=== PATIENT | male | born 1935 | race Caucasian/White ===

== ENCOUNTER 2017-08-11 05:43 | Inpatient (IN) | END 2017-08-14 22:23 | disposition home health service (06) | DRG 470 | DX: M17.11 Unilateral primary osteoarthritis, right knee (principal); J44.9 Chronic obstructive pulmonary disease, unspecified; Z95.1 Presence of aortocoronary bypass graft; I10 Essential (primary) hypertension; Z79.02 Long term (current) use of antithrombotics/antiplatelets; E78.00 Pure hypercholesterolemia, unspecified; E66.9 Obesity, unspecified; Z68.34 Body mass index [BMI] 34.0-34.9, adult ==

== ENCOUNTER 2017-08-14 17:50 | Inpatient (IN) | payer MEDICARE, OTHER ==
[~2017-08-14] VITALS: Ht 165.1 cm; Wt 99.0 kg
[~2017-08-14 17:50] MED LIST: ATOR10TA65 PO; CLON2TAB3 PO; CLOP75TA27 PO; DOXE10CA PO; ESOM40CA PO; PROP60CA PO
[2017-08-15] MEDS ORDERED: SENNA TAB PO PRN (00:30)
[2017-08-15] MEDS ORDERED: HYDROCODONE/APAP (5/325) TAB PO PRN (00:30)
[2017-08-15] MEDS ORDERED: COUMADIN NOTE XX SCH (00:30)
[2017-08-15] MEDS ORDERED: BETHANECHOL 25 MG TAB PO PRN (00:30)
[2017-08-15] MEDS ORDERED: BISACODYL 10 MG SUPP PR PRN (00:30)
[2017-08-15] MEDS ORDERED: NA PHOSPHATE/BIPHOS 133 ML ENEMA PR PRN (00:30)
[2017-08-15] MEDS ORDERED: MAGNESIUM HYDROXIDE 30ML CUP PO PRN ×2 (00:30→15:00)
[2017-08-15] MEDS ORDERED: ZOLPIDEM 5 MG TAB PO PRN (00:30)
[2017-08-15] MEDS: ALBUTEROL/IPRATROPIUM (NEB) 3 ML AMP HHN SCH ×6 (01:00→21:05)
[2017-08-15] MEDS ORDERED: SENNA/DOCUSATE NA (8.6MG/50MG) TAB PO PRN (03:05)
[2017-08-15 03:14] VITALS: BP 148/68; RESP 20
[2017-08-15] MEDS ORDERED: LACTULOSE 30ML CUP PO PRN (04:30)
[2017-08-15] MEDS ORDERED: ACETAMINOPHEN 325 MG TAB PO PRN (04:30)
[2017-08-15] MEDS: PANTOPRAZOLE (EC) 40 MG TAB PO SCH (06:07)
[2017-08-15 06:42] LABS: BASOPHILS % 0.4 % (0.0-2.0); EOSINOPHILS # 0.2 10^3/ul (0.0-0.5); EOSINOPHILS % 2.3 % (0.0-7.0); HEMOGLOBIN 9.9 g/dl (14.0-18.0); LYMPHOCYTES # 1.5 10^3/ul (0.8-2.9); LYMPHOCYTES % 17.7 % (15.0-51.0); MEAN CORPUSCULAR HEMOGLOBIN 30.5 pg (29.0-33.0); MEAN CORPUSCULAR HGB CONC 31.9 g/dl (32.0-37.0); MEAN CORPUSCULAR VOLUME 95.4 fl (82.0-101.0); MEAN PLATELET VOLUME 9.5 fl (7.4-10.4); MONOCYTE # 0.8 10^3/ul (0.3-0.9); MONOCYTES % 9.9 % (0.0-11.0); NEUTROPHIL # 5.7 10^3/ul (1.6-7.5); NEUTROPHILS % 69.2 % (39.0-77.0); PLATELET COUNT 230 10^3/UL (140-415); RED BLOOD COUNT 3.25 10^6/ul (4.70-6.10); RED CELL DISTRIBUTION WIDTH 13.1 % (11.5-14.5); WHITE BLOOD COUNT 8.2 10^3/ul (4.8-10.8)
[2017-08-15 06:53] VITALS: Ht 165.1 cm; Wt 99.0 kg
[2017-08-15 07:14] LABS: ALBUMIN/GLOBULIN RATIO 0.9; BILIRUBIN,INDIRECT 0.5 mg/dl (0-1.1); BILIRUBIN,TOTAL 0.5 mg/dl (0.2-1.3); CALCIUM 8.4 mg/dl (8.4-10.2); CREATININE 0.8 mg/dl (0.61-1.24); POTASSIUM 3.4 mmol/L (3.5-5.1); TOTAL PROTEIN 6.3 g/dl (6.1-8.1)
[2017-08-15 07:30] VITALS: BP 123/64; RESP 20
[2017-08-15] MEDS: oxyCODONE (CR) 10 MG TAB [oxyCONTIN] PO SCH ×2 (08:08→20:16)
[2017-08-15] MEDS: ASPIRIN (EC) 81 MG TAB PO SCH ×2 (08:08→20:16)
[2017-08-15] MEDS: CLOPIDOGREL 75 MG TAB PO SCH (08:08)
[2017-08-15] MEDS: CELECOXIB 200 MG CAP PO SCH ×2 (08:08→20:16)
[2017-08-15] MEDS: FERROUS FUMARATE (SR) TAB PO SCH ×2 (08:08→20:16)
[2017-08-15] MEDS: DOCUSATE SODIUM 100 MG CAP PO SCH ×2 (08:11→20:16)
--- NOTE | 2017-08-15 11:54 | CONS ---
DATE OF ADMISSION: 08/14/2017 DATE OF CONSULTATION: 08/15/2017 REHABILITATION POST ADMISSION PHYSICIAN EVALUATION REHABILITATION IMPAIRMENT CATEGORY: Other orthopedic disorder with severe osteoarthritis status post right total knee replacement. ACTIVE COMORBIDITIES: 1. Acute pain syndrome. 2. History of chronic low back pain with history of back surgery. 3. Obesity. 4. Coronary artery disease with history of coronary artery bypass graft. 5. Chronic obstructive pulmonary disease. 6. Hyperlipidemia. 7. History of left total knee replacement. 8. Impairments in self-care and mobility. HISTORY OF PRESENT ILLNESS: The patient is a pleasant 82-year-old gentleman with a history of multiple medical comorbidities who had been noting severe increasing right knee pain despite conservative measures. The patient underwent a right total knee replacement with postoperative course notable for anemia in addition to significant pain and constipation. The patient had been cleared to transfer to the rehabilitation unit for comprehensive interdisciplinary rehab care. FUNCTIONAL HISTORY: Prior to recent events, she was independent in self-care tasks and mobility. Currently, the patient requires moderate assist for self- care and mobility tasks. I have reviewed the preadmission screen and the patient's current functional status is consistent with the preadmission screen. SOCIAL HISTORY: The patient reports living at home with family and he hopes to return there upon discharge. PAST MEDICAL HISTORY: 1. Obesity. 2. Coronary artery disease with history of coronary artery bypass graft. 3. Chronic obstructive pulmonary disease. 4. Hyperlipidemia. 5. History of left total knee replacement. 6. History of lumbar surgery. CURRENT MEDICATIONS: 1. Aspirin 81 mg p.o. b.i.d. 2. Lipitor 10 mg p.o. at bedtime. 3. Urecholine 25 mg p.r.n. 4. Celebrex 200 mg p.o. b.i.d. 5. Plavix 75 mg p.o. every day. 6. Senokot p.r.n. 7. Ferrous fumarate b.i.d. 8. Neurontin 100 mg b.i.d. 9. [place] p.r.n. 10. OxyContin 10 mg b.i.d. 11. Protonix 40 mg p.o. every day. ALLERGIES: THE PATIENT WITH NO KNOWN DRUG ALLERGIES. PHYSICAL EXAMINATION: VITAL SIGNS: The patient is currently afebrile with stable vital signs. HEENT: Extraocular motions are intact. Oropharynx clear. NECK: Supple. LUNGS: Clear anteriorly. CARDIAC: S1, S2. ABDOMEN: Soft, nontender, positive bowel sounds. NEUROLOGIC: The patient is awake and alert and oriented x3, can follow simple 1 -step commands. He demonstrates antigravity strength in bilateral upper extremity and the left lower extremity. Dorsiflexion and plantar flexion intact on the right. PLAN: The patient has been admitted for comprehensive interdisciplinary acute rehab and is anticipated to tolerate 3 hours of daily therapy in divided doses for at least 5/7 days a week. The treatment plan will include: 1. Physical therapy to focus on bed mobility, transfers and household ambulation with the goal to have the patient reach standby assist level. 2. Occupational therapy to focus on hygiene, grooming, dressing, bathing, and toileting activities with goal of having patient reach standby assist level. 3. Rehabilitation nursing for carryover of therapeutic interventions, the goal of continent of bowel and bladder and the goal of pain adequately managed on oral medications. ESTIMATED LENGTH OF STAY: 10 days. DISPOSITION GOAL: Home. Rehabilitaiton Barrier: pain Intervention For Barrier: Interdisciplinary rehab I acknowledge that I performed a full physical examination on this patient within 24 hours of admission to the rehabilitation unit and I believe the patient is a good candidate for comprehensive interdisciplinary rehab care and is anticipated to make reasonable goals in a reasonable period of time as outlined above. Dictated By: ALEJANDRA QUIÑONEZ/BRANDON Conf#: [id number] DID#: [id number] MTDD
--- NOTE | 2017-08-15 14:12 | CONS ---
Date/Time of Note Date/Time of Note DATE: 08/15/17 TIME: 14:12 Assessment/Plan Assessment/Plan Chief Complaint/Hosp Course 82-year-old male, status post right total knee replacement secondary to osteoarthritis, transferred to [facility] for further rehabilitation. 1. Osteoarthritis, status post right total knee replacement on 08/11/2017. -Postoperative follow-up with orthopedics. -Continue pain medications, PT eval and treatment. 2. Hypertension. Blood pressure stable. -Continue to monitor for now. 3. Hyperlipidemia. - Continue statin. 4. Obesity. -Lifestyle changes/weight reduction advised. 5. History of chronic obstructive pulmonary disease. No acute distress. -As needed bronchodilators. 6. Coronary artery disease status post coronary artery bypass grafting and stent placed in the past. -Continue aspirin and Plavix 7. Anemia, chronic. Stable H&H. 8. Hypokalemia with hypomagnesemia. Replete and monitor. Prophylaxis: Lovenox. Presently 60 minutes was spent on this consultation. Patient was seen in collaboration with . Problems: Consultation Date/Type/Reason Admit Date/Time Aug 14, 2017 at 22:53 Reason for Consultation Internal medicine Hx of Present Illness This is a 82-year-old obese male with a past medical history of coronary artery disease with PCI and stent placed, CABG, COPD, osteoarthritis, hypercholesterolemia, hypertension, who is now transferred to [facility] acute rehabilitation unit after patient had right total knee replacement surgery with Dr. Neema Cifuentes MD on 08/11/2017. Patient had a normal postoperative course. However, he continued to have impairment in self-care requiring further rehabilitation. Patient denies any chest pain, palpitation, shortness of breath, nausea, vomiting, abdominal discomfort, numbness, tingling, swelling or other constitutional symptoms. Current labs and vital signs within acceptable range. A 12 point review of system was assessed and is negative other than what is mentioned in HPI. Past Medical History See HPI Past Surgical History See HPI Social History Denied history of alcohol, smoking or illicit drug use. Smoking Status: Never smoker Exam/Review of Systems Vital Signs Vitals Vital Signs Date Time Temp Pulse Resp B/P Pulse Ox O2 Delivery O2 Flow Rate FiO2 08/15/17 08:10 90 18 94 21 08/15/17 08:10 2.0 08/15/17 08:00 Nasal Cannula 08/15/17 07:30 98.5 123/64 Exam General: Well developed,adequately built, not in any acute distress . HEENT: Normocephalic, Atraumatic, No laceration or hematoma; Eyes: PEERL, Conjunctiva clear, Anicteric sclera Neck: Supple without any lymphadenopathy, nontender, no JVD, no carotid bruits, trachea midline, no thyromegaly Cardiac: S1, S2 auscultated, regular rhythm and rate, no mumurs or gallop Pulmonary: Normal respiratory effort. Chest clear to auscultation bilaterally, no adventitious breath sounds GI: Abdomen normal to inspection. Soft, non tender, non- distended, no masses, no rebound tenderness or guarding. Bowel sounds active on all four quadrants Genitourinary: Deferred Extremities: No cyanosis, clubbing, or edema. Pulses [2+] bilaterally. Full ROM on all four extremities. No focal weakness appreciated. Neurologic: Alert to person, place, time, and situation. Affect appropriate, intact sensation. Skin: Clean,dry, and intact. No ecchymosis, no rashes, or lesions Results Result Diagram: 08/15/1760008/15/17 06 Results 24 hrs Laboratory Tests Test 08/15/17 06:01 White Blood Count 8.2 Red Blood Count 3.25 L Hemoglobin 9.9 L Hematocrit 31.0 L Mean Corpuscular Volume 95.4 Mean Corpuscular Hemoglobin 30.5 Mean Corpuscular Hemoglobin Concent 31.9 L Red Cell Distribution Width 13.1 Platelet Count 230 Mean Platelet Volume 9.5 Neutrophils % 69.2 Lymphocytes % 17.7 Monocytes % 9.9 Eosinophils % 2.3 Basophils % 0.4 Nucleated Red Blood Cells % 0.0 Neutrophils # 5.7 Lymphocytes # 1.5 Monocytes # 0.8 Eosinophils # 0.2 Basophils # 0.0 Nucleated Red Blood Cells # 0.0 Sodium Level 141 Potassium Level 3.4 L Chloride Level 104 Carbon Dioxide Level 28 Anion Gap 12 Blood Urea Nitrogen 16 Creatinine 0.80 Glucose Level 83 Calcium Level 8.4 Magnesium Level 1.6 L Total Bilirubin 0.5 Direct Bilirubin 0.00 Indirect Bilirubin 0.5 Aspartate Amino Transf (AST/SGOT) 52 H Alanine Aminotransferase (ALT/SGPT) 30 Alkaline Phosphatase 160 H Total Protein 6.3 Albumin 3.0 L Globulin 3.30 H Albumin/Globulin Ratio 0.90 Medications Medications Current Medications Pantoprazole (Protonix Tab) 40 mg DAILY@06 PO Last administered on 08/15/17 06:07; Admin Dose 40 MG; Start 08/15/17 at 06:00 Simethicone (Mylicon) 80 mg TID PRN PO DISTENSION/GAS/BLOATING; Start at 00:30 Sodium Biphosphate/ Sodium Phosphate (Fleet Enema) 133 ml DAILY PRN [place] CONSTIPATION; Start 08/15/17 at 00:30 Zolpidem Tartrate (Ambien) 5 mg HS PRN PO INSOMNIA; Start 08/15/17 at 00:30 Magnesium Hydroxide (Milk Of Mag) 30 ml HS PRN PO CONSTIPATION; Start at 00:30 Oxycodone HCl (Oxycontin) 10 mg BID PO Last administered on 08/15/17 08:08; Admin Dose 10 MG; Start 08/15/17 at 09:00 Miscellaneous Information (Note) FOR COUMADIN / LOVE... NOTE XX ; Start at 00:30 Docusate Sodium/ Ferrous Fumarate (Harry-Sequels) 1 tab BID PO Last administered on 08/15/17 08:08; Admin Dose 1 TAB; Start 08/15/17 at 09:00 Acetaminophen/ Hydrocodone Bitart ([place] (5/325)) 1 tab Q6H PRN PO PAIN; Start 08/15/17 at 00:30 Aspirin (Halfprin) 81 mg BID PO Last administered on 08/15/17 08:08; Admin Dose 81 MG; Start 08/15/17 at 09:00 Atorvastatin Calcium (Lipitor) 10 mg DAILY@21 PO ; Start 08/15/17 at 21:00 Bisacodyl (Dulcolax Supp) 10 mg DAILY PRN [place] CONSTIPATION; Start 08/15/17 at 00:30 Celecoxib (Celebrex) 200 mg BID PO Last administered on 08/15/17 08:08; Admin Dose 200 MG; Start 08/15/17 at 09:00 Clopidogrel Bisulfate (plaVIX) 75 mg DAILY PO Last administered on 08/15/17 08:08; Admin Dose 75 MG; Start 08/15/17 at 09:00 Senna/Docusate Sodium (Senokot-S) 2 tab BID PRN PO CONSTIPATION; Start at 03:05 Docusate Sodium (Colace) 100 mg BID PO Last administered on 08/15/17t 08:11; Admin Dose 100 MG; Start 08/15/17 at 09:00 Acetaminophen (Tylenol Tab) 650 mg Q4H PRN PO PAIN; Start 08/15/17 at 04:30 Lactulose (Enulose) 20 gm DAILY PRN PO CONSTIPATION; Start 08/15/17 at 04:30 AMY FU NP Aug 15, 2017 14:12
[2017-08-15] MEDS ORDERED: POTASSIUM CHLORIDE (SR) 20 MEQ TAB PO STA (15:27)
[2017-08-15] MEDS ORDERED: BETAMETHASONE/CLOTRIMAZOLE 15 GM CR TOP ONE (15:30)
[2017-08-15] MEDS ORDERED: MAGNESIUM SULFATE 2 GM/50 ML 50 ML IVPB ONE (17:00)
[2017-08-15] MEDS: ENOXAPARIN 40 MG/0.4 ML SYG SC SCH (18:08)
[2017-08-15 20:00] VITALS: BP 139/69; RESP 18
[2017-08-15] MEDS: ATORVASTATIN 10 MG TAB PO SCH (20:16)
[2017-08-15 23:37] LABS: ADD UMIC YES; UR ASCORBIC ACID NEGATIVE (NEGATIVE); UR BILIRUBIN (Dip) NEGATIVE (NEGATIVE); UR BLOOD (Dip) 1+ mg/dL (NEGATIVE); UR CLARITY CLEAR (CLEAR); UR COLOR AMBER (YELLOW); UR GLUCOSE (Dip) NEGATIVE (NEGATIVE); UR KETONES (Dip) 1+ mg/dL (NEGATIVE); UR LEUKOCYTE ESTERASE (Dip) NEGATIVE Leu/ul (NEGATIVE); UR NITRITE (Dip) NEGATIVE (NEGATIVE); UR RBC 3 /HPF (0-5); UR SPECIFIC GRAVITY (Dip) 1.019 (1.003-1.030); UR TOTAL PROTEIN (Dip) NEGATIVE (NEGATIVE); UR UROBILINOGEN (Dip) 2+ mg/dL (NEGATIVE)
[2017-08-16] MEDS: ALBUTEROL/IPRATROPIUM (NEB) 3 ML AMP HHN SCH ×6 (01:00→21:50)
[2017-08-16 02:00] VITALS: BP 128/70; RESP 18
[2017-08-16] MEDS: PANTOPRAZOLE (EC) 40 MG TAB PO SCH (06:23)
[2017-08-16 07:30] VITALS: BP 136/65; RESP 20
[2017-08-16] MEDS: oxyCODONE (CR) 10 MG TAB [oxyCONTIN] PO SCH ×3 (08:05→20:20)
[2017-08-16] MEDS: DOCUSATE SODIUM 100 MG CAP PO SCH ×2 (09:01→20:19)
[2017-08-16] MEDS: FERROUS FUMARATE (SR) TAB PO SCH ×2 (09:01→20:19)
[2017-08-16] MEDS: CELECOXIB 200 MG CAP PO SCH ×2 (09:01→20:19)
[2017-08-16] MEDS: ASPIRIN (EC) 81 MG TAB PO SCH ×2 (09:01→20:19)
[2017-08-16] MEDS: CLOPIDOGREL 75 MG TAB PO SCH (09:01)
[2017-08-16] MEDS: ENOXAPARIN 40 MG/0.4 ML SYG SC SCH (09:02)
--- NOTE | 2017-08-16 09:23 | CONS ---
Date/Time of Note Date/Time of Note DATE: 08/16/17 TIME: 09:21 Consult Date/Type/Reason Admit Date/Time Aug 14, 2017 at 22:53 Initial Consult Date Subjective Reports significant pain Objective pulm-cta max Vital Signs Date Time Temp Pulse Resp B/P Pulse Ox O2 Delivery O2 Flow Rate FiO2 08/16/17 05:14 2.0 08/16/17 02:00 98.5 85 18 128/70 95 08/15/17 21:06 Nasal Cannula 08/15/17 08:10 Intake and Output 08/15/17 08/15/17 08/16/17 15:00 23:00 07:00 Intake Total 300 ml 370 ml 400 ml Balance 300 ml 370 ml 400 ml Results/Medications Result Diagram: 08/15/1760008/15/17 06 Medications Current Medications Pantoprazole (Protonix Tab) 40 mg DAILY@06 PO Last administered on 08/16/17 06:23; Admin Dose 40 MG; Start 08/15/17 at 06:00 Simethicone (Mylicon) 80 mg TID PRN PO DISTENSION/GAS/BLOATING; Start at 00:30 Sodium Biphosphate/ Sodium Phosphate (Fleet Enema) 133 ml DAILY PRN [place] CONSTIPATION; Start 08/15/17 at 00:30 Zolpidem Tartrate (Ambien) 5 mg HS PRN PO INSOMNIA; Start 08/15/17 at 00:30 Oxycodone HCl (Oxycontin) 10 mg BID PO Last administered on 08/16/17 09:03; Admin Dose 10 MG; Start 08/15/17 at 09:00 Miscellaneous Information (Note) FOR COUMADIN / LOVE... NOTE XX ; Start at 00:30 Docusate Sodium/ Ferrous Fumarate (Harry-Sequels) 1 tab BID PO Last administered on 08/16/17 09:01; Admin Dose 1 TAB; Start 08/15/17 at 09:00 Acetaminophen/ Hydrocodone Bitart ([place] (5/325)) 1 tab Q6H PRN PO PAIN Last administered on 08/16/17 06:25; Admin Dose 1 TAB; Start 08/15/17 at 00:30 Aspirin (Halfprin) 81 mg BID PO Last administered on 08/16/17 09:01; Admin Dose 81 MG; Start 08/15/17 at 09:00 Atorvastatin Calcium (Lipitor) 10 mg DAILY@21 PO Last administered on 20:16; Admin Dose 10 MG; Start 08/15/17 at 21:00 Bisacodyl (Dulcolax Supp) 10 mg DAILY PRN [place] CONSTIPATION; Start 08/15/17 at 00:30 Celecoxib (Celebrex) 200 mg BID PO Last administered on 08/16/17 09:01; Admin Dose 200 MG; Start 08/15/17 at 09:00 Clopidogrel Bisulfate (plaVIX) 75 mg DAILY PO Last administered on 08/16/17 09:01; Admin Dose 75 MG; Start 08/15/17 at 09:00 Senna/Docusate Sodium (Senokot-S) 2 tab BID PRN PO CONSTIPATION; Start at 03:05 Docusate Sodium (Colace) 100 mg BID PO Last administered on 08/16/17 09:01; Admin Dose 100 MG; Start 08/15/17 at 09:00 Acetaminophen (Tylenol Tab) 650 mg Q4H PRN PO PAIN; Start 08/15/17 at 04:30 Lactulose (Enulose) 20 gm DAILY PRN PO CONSTIPATION; Start 08/15/17 at 04:30 Magnesium Hydroxide (Milk Of Mag) 30 ml BID PRN PO CONSTIPATION; Start at 15:00 Bisacodyl (Dulcolax) 5 mg DAILY PRN PO CONSTIPATION; Start 08/15/17 at 15:00 Enoxaparin Sodium (Lovenox) 40 mg DAILY SC Last administered on 08/16/17 09: 02; Admin Dose 40 MG; Start 08/15/17 at 15:00 Acetaminophen/ Hydrocodone Bitart ([place] (7.5-325)) 1 tab Q6H PRN PO pain; Start 08/16/17 at 09:30; Status UNV Hydromorphone HCl (Dilaudid) 0.5 mg Q6H PRN IV PAIN; Start 08/16/17 at 09:30; Status UNV Assessment/Plan Additional Assessment/Plan Rehab-Other orthopedic disorder with severe osteoarthritis status post right total knee replacement. Increase activities as tolerated Acute pain syndrome-adjust pain meds History of chronic low back pain with history of back surgery. Obesity. Coronary artery disease with history of coronary artery bypass graft. Chronic obstructive pulmonary disease. Hyperlipidemia. History of left total knee replacement. ALEJANDRA BATEMAN MD Aug 16, 2017 09:23
--- NOTE | 2017-08-16 11:30 | CONS ---
Date/Time of Note Date/Time of Note DATE: 08/16/17 TIME: 11:28 Assessment/Plan Assessment/Plan Chief Complaint/Hosp Course 82-year-old male, status post right total knee replacement secondary to osteoarthritis, transferred to [facility] for further rehabilitation. 1. Osteoarthritis, status post right total knee replacement on 08/11/2017. -Postoperative follow-up with orthopedics. -Continue pain medications, PT eval and treatment. 2. Hypertension. Blood pressure stable. -Continue to monitor for now. 3. Hyperlipidemia. - Continue statin. 4. Obesity. -Lifestyle changes/weight reduction advised. 5. History of chronic obstructive pulmonary disease. No acute distress. -As needed bronchodilators. 6. Coronary artery disease status post coronary artery bypass grafting and stent placed in the past. -Continue aspirin and Plavix 7. Anemia, chronic. Stable H&H. Prophylaxis: Lovenox. Plan: Patient with overall poor participation in physical therapy. Defer ARU team for further recommendations. Patient was seen in collaboration with . Problems: Consultation Date/Type/Reason Admit Date/Time Aug 14, 2017 at 22:53 Initial Consult Date 24 HR Interval Summary Free Text/Dictation No acute distress. With poor participation in physical therapy. Exam/Review of Systems Vital Signs Vitals Vital Signs Date Time Temp Pulse Resp B/P Pulse Ox O2 Delivery O2 Flow Rate FiO2 08/16/17 07:30 97.8 80 20 136/65 98 08/16/17 05:14 2.0 08/15/17 21:06 Nasal Cannula 08/15/17 08:10 Intake and Output 08/15/17 08/15/17 08/16/17 14:59 22:59 06:59 Intake Total 300 ml 370 ml 400 ml Balance 300 ml 370 ml 400 ml Exam General: Well developed,adequately built, not in any acute distress . HEENT: Normocephalic, Atraumatic, No laceration or hematoma; Eyes: PEERL, Conjunctiva clear, Anicteric sclera Neck: Supple without any lymphadenopathy, nontender, no JVD, no carotid bruits, trachea midline, no thyromegaly Cardiac: S1, S2 auscultated, regular rhythm and rate, no mumurs or gallop Pulmonary: Normal respiratory effort. Chest clear to auscultation bilaterally, no adventitious breath sounds GI: Abdomen normal to inspection. Soft, non tender, non- distended, no masses, no rebound tenderness or guarding. Bowel sounds active on all four quadrants Genitourinary: Deferred Extremities: No cyanosis, clubbing, or edema. Pulses [2+] bilaterally. Full ROM on all four extremities. No focal weakness appreciated. Neurologic: Alert to person, place, time, and situation. Affect appropriate, intact sensation. Skin: Clean,dry, and intact. No ecchymosis, no rashes, or lesions Results Result Diagram: 08/15/1760008/15/17 06 Medications Medications Current Medications Pantoprazole (Protonix Tab) 40 mg DAILY@06 PO Last administered on 08/16/17 06:23; Admin Dose 40 MG; Start 08/15/17 at 06:00 Simethicone (Mylicon) 80 mg TID PRN PO DISTENSION/GAS/BLOATING; Start at 00:30 Sodium Biphosphate/ Sodium Phosphate (Fleet Enema) [address] CONSTIPATION; Start 08/15/17 at 00:30 Zolpidem Tartrate (Ambien) 5 mg HS PRN PO INSOMNIA; Start 08/15/17 at 00:30 Oxycodone HCl (Oxycontin) 10 mg BID PO Last administered on 08/16/17 09:03; Admin Dose 10 MG; Start 08/15/17 at 09:00 Miscellaneous Information (Note) FOR COUMADIN / LOVE... NOTE XX ; Start at 00:30 Docusate Sodium/ Ferrous Fumarate (Harry-Sequels) 1 tab BID PO Last administered on 08/16/17 09:01; Admin Dose 1 TAB; Start 08/15/17 at 09:00 Aspirin (Halfprin) 81 mg BID PO Last administered on 08/16/17 09:01; Admin Dose 81 MG; Start 08/15/17 at 09:00 Atorvastatin Calcium (Lipitor) 10 mg DAILY@21 PO Last administered on 20:16; Admin Dose 10 MG; Start 08/15/17 at 21:00 Bisacodyl (Dulcolax Supp) [address] CONSTIPATION; Start 08/15/17 at 00:30 Celecoxib (Celebrex) 200 mg BID PO Last administered on 08/16/17 09:01; Admin Dose 200 MG; Start 08/15/17 at 09:00 Clopidogrel Bisulfate (plaVIX) 75 mg DAILY PO Last administered on 08/16/17 09:01; Admin Dose 75 MG; Start 08/15/17 at 09:00 Senna/Docusate Sodium (Senokot-S) 2 tab BID PRN PO CONSTIPATION; Start at 03:05 Docusate Sodium (Colace) 100 mg BID PO Last administered on 08/16/17 09:01; Admin Dose 100 MG; Start 08/15/17 at 09:00 Acetaminophen (Tylenol Tab) 650 mg Q4H PRN PO PAIN; Start 08/15/17 at 04:30 Lactulose (Enulose) 20 gm DAILY PRN PO CONSTIPATION; Start 08/15/17 at 04:30 Magnesium Hydroxide (Milk Of Mag) 30 ml BID PRN PO CONSTIPATION; Start at 15:00 Bisacodyl (Dulcolax) 5 mg DAILY PRN PO CONSTIPATION; Start 08/15/17 at 15:00 Enoxaparin Sodium (Lovenox) 40 mg DAILY SC Last administered on 08/16/17 09: 02; Admin Dose 40 MG; Start 08/15/17 at 15:00 Acetaminophen/ Hydrocodone Bitart ([place] (7.5-325)) 1 tab Q6H PRN PO pain; Start 08/16/17 at 09:30 Hydromorphone HCl (Dilaudid) 0.5 mg Q6H PRN IV PAIN; Start 08/16/17 at 09:30 AMY FU NP Aug 16, 2017 11:30
[2017-08-16 14:14] VITALS: BP 165/75; PULSE 92; RESP 16
[2017-08-16 16:30] VITALS: BP 165/75; RESP 20
[2017-08-16 17:18] VITALS: BP 159/78; PULSE 88; RESP 18
[2017-08-16] MEDS: HYDROmorphONE 0.5 MG/0.5 ML SYG IV PRN (18:52)
[2017-08-16 19:51] VITALS: BP 168/72; RESP 18
[2017-08-16] MEDS: ATORVASTATIN 10 MG TAB PO SCH (20:19)
[2017-08-16] MEDS: HYDROCODONE/APAP (7.5/325) TAB PO PRN (22:52)
[2017-08-17] MEDS: ALBUTEROL/IPRATROPIUM (NEB) 3 ML AMP HHN SCH ×6 (01:00→21:00)
[2017-08-17 02:00] VITALS: BP 146/69; PULSE 83; RESP 18
[2017-08-17] MEDS: PANTOPRAZOLE (EC) 40 MG TAB PO SCH (06:14)
[2017-08-17 07:00] VITALS: BP 152/67; RESP 18
[2017-08-17] MEDS: oxyCODONE (CR) 10 MG TAB [oxyCONTIN] PO SCH ×2 (08:44→20:37)
[2017-08-17] MEDS: CLOPIDOGREL 75 MG TAB PO SCH (08:44)
[2017-08-17] MEDS: FERROUS FUMARATE (SR) TAB PO SCH ×2 (08:44→20:36)
[2017-08-17] MEDS: DOCUSATE SODIUM 100 MG CAP PO SCH ×2 (08:44→20:36)
[2017-08-17] MEDS: ASPIRIN (EC) 81 MG TAB PO SCH ×2 (08:44→20:36)
[2017-08-17] MEDS: BISACODYL (EC) 5 MG TAB PO PRN (08:44)
[2017-08-17] MEDS: CELECOXIB 200 MG CAP PO SCH ×2 (08:45→20:36)
[2017-08-17] MEDS: ENOXAPARIN 40 MG/0.4 ML SYG SC SCH (08:46)
--- NOTE | 2017-08-17 10:56 | CONS ---
Date/Time of Note Date/Time of Note DATE: 08/17/17 TIME: 10:55 Assessment/Plan Assessment/Plan Chief Complaint/Hosp Course 82-year-old male, status post right total knee replacement secondary to osteoarthritis, transferred to [facility] for further rehabilitation. 1. Osteoarthritis, status post right total knee replacement on 08/11/2017. -Postoperative follow-up with orthopedics. -Continue pain medications, PT eval and treatment. 2. Hypertension. Blood pressure stable. -Continue to monitor for now. 3. Hyperlipidemia. - Continue statin. 4. Obesity. -Lifestyle changes/weight reduction advised. 5. History of chronic obstructive pulmonary disease. No acute distress. -As needed bronchodilators. 6. Coronary artery disease status post coronary artery bypass grafting and stent placed in the past. -Continue aspirin and Plavix 7. Anemia, chronic. Stable H&H. Prophylaxis: Lovenox. Plan: Patient with overall poor participation in physical therapy. Defer ARU team for further recommendations. Patient was seen in collaboration with . Problems: Consultation Date/Type/Reason Admit Date/Time Aug 14, 2017 at 22:53 24 HR Interval Summary Free Text/Dictation No acute distress. Exam/Review of Systems Vital Signs Vitals Vital Signs Date Time Temp Pulse Resp B/P Pulse Ox O2 Delivery O2 Flow Rate FiO2 08/17/17 07:00 98.6 73 18 152/67 93 08/17/17 02:00 Room Air 08/16/17 20:15 2.0 08/15/17 08:10 Intake and Output 08/16/17 08/16/17 08/17/17 15:00 23:00 07:00 Intake Total 650 ml Output Total 830 ml 200 ml Balance -180 ml -200 ml Exam General: Well developed,adequately built, not in any acute distress . HEENT: Normocephalic, Atraumatic, No laceration or hematoma; Eyes: PEERL, Conjunctiva clear, Anicteric sclera Neck: Supple without any lymphadenopathy, nontender, no JVD, no carotid bruits, trachea midline, no thyromegaly Cardiac: S1, S2 auscultated, regular rhythm and rate, no mumurs or gallop Pulmonary: Normal respiratory effort. Chest clear to auscultation bilaterally, no adventitious breath sounds GI: Abdomen normal to inspection. Soft, non tender, non- distended, no masses, no rebound tenderness or guarding. Bowel sounds active on all four quadrants Genitourinary: Deferred Extremities: No cyanosis, clubbing, or edema. Pulses [2+] bilaterally. Full ROM on all four extremities. No focal weakness appreciated. Neurologic: Alert to person, place, time, and situation. Affect appropriate, intact sensation. Skin: Clean,dry, and intact. No ecchymosis, no rashes, or lesions Results Result Diagram: 08/15/1760008/15/17600 Medications Medications Current Medications Pantoprazole (Protonix Tab) 40 mg DAILY@06 PO Last administered on 08/17/17 06:14; Admin Dose 40 MG; Start 08/15/17 at 06:00 Simethicone (Mylicon) 80 mg TID PRN PO DISTENSION/GAS/BLOATING; Start at 00:30 Sodium Biphosphate/ Sodium Phosphate (Fleet Enema) 133 ml DAILY PRN [place] CONSTIPATION; Start 08/15/17 at 00:30 Zolpidem Tartrate (Ambien) 5 mg HS PRN PO INSOMNIA; Start 08/15/17 at 00:30 Oxycodone HCl (Oxycontin) 10 mg BID PO Last administered on 08/17/17 08:44; Admin Dose 10 MG; Start 08/15/17 at 09:00 Miscellaneous Information (Note) FOR COUMADIN / LOVE... NOTE XX ; Start at 00:30 Docusate Sodium/ Ferrous Fumarate (Harry-Sequels) 1 tab BID PO Last administered on 08/17/17 08:44; Admin Dose 1 TAB; Start 08/15/17 at 09:00 Aspirin (Halfprin) 81 mg BID PO Last administered on 08/17/17 08:44; Admin Dose 81 MG; Start 08/15/17 at 09:00 Atorvastatin Calcium (Lipitor) 10 mg DAILY@21 PO Last administered on 20:19; Admin Dose 10 MG; Start 08/15/17 at 21:00 Bisacodyl (Dulcolax Supp) 10 mg DAILY PRN [place] CONSTIPATION; Start 08/15/17 at 00:30 Celecoxib (Celebrex) 200 mg BID PO Last administered on 08/17/17 08:45; Admin Dose 200 MG; Start 08/15/17 at 09:00 Clopidogrel Bisulfate (plaVIX) 75 mg DAILY PO Last administered on 08/17/17 08:44; Admin Dose 75 MG; Start 08/15/17 at 09:00 Senna/Docusate Sodium (Senokot-S) 2 tab BID PRN PO CONSTIPATION; Start at 03:05 Docusate Sodium (Colace) 100 mg BID PO Last administered on 08/17/17 08:44; Admin Dose 100 MG; Start 08/15/17 at 09:00 Acetaminophen (Tylenol Tab) 650 mg Q4H PRN PO PAIN; Start 08/15/17 at 04:30 Lactulose (Enulose) 20 gm DAILY PRN PO CONSTIPATION; Start 08/15/17 at 04:30 Magnesium Hydroxide (Milk Of Mag) 30 ml BID PRN PO CONSTIPATION; Start at 15:00 Bisacodyl (Dulcolax) 5 mg DAILY PRN PO CONSTIPATION Last administered on 08:44; Admin Dose 5 MG; Start 08/15/17 at 15:00 Enoxaparin Sodium (Lovenox) 40 mg DAILY SC Last administered on 08/17/17 08: 46; Admin Dose 40 MG; Start 08/15/17 at 15:00 Acetaminophen/ Hydrocodone Bitart ([place] (7.5-325)) 1 tab Q6H PRN PO pain Last administered on 08/16/17 22:52; Admin Dose 1 TAB; Start 08/16/17 at 09:30 Hydromorphone HCl (Dilaudid) 0.5 mg Q6H PRN IV PAIN Last administered on 18:52; Admin Dose 0.5 MG; Start 08/16/17 at 09:30 AMY FU NP Aug 17, 2017 10:56
[2017-08-17] MEDS: HYDROmorphONE 0.5 MG/0.5 ML SYG IV PRN ×2 (17:39→23:37)
[2017-08-17 20:00] VITALS: BP 148/74; RESP 18
[2017-08-17] MEDS: ATORVASTATIN 10 MG TAB PO SCH (20:37)
[2017-08-18] MEDS: ALBUTEROL/IPRATROPIUM (NEB) 3 ML AMP HHN SCH ×6 (01:00→21:00)
[2017-08-18 02:00] VITALS: BP 165/80; RESP 18
[2017-08-18] MEDS: PANTOPRAZOLE (EC) 40 MG TAB PO SCH (06:07)
[2017-08-18 07:00] VITALS: BP 170/82; RESP 18
[2017-08-18] MEDS: FERROUS FUMARATE (SR) TAB PO SCH ×2 (08:16→21:07)
[2017-08-18] MEDS: BISACODYL (EC) 5 MG TAB PO PRN (08:16)
[2017-08-18] MEDS: ASPIRIN (EC) 81 MG TAB PO SCH ×2 (08:16→21:07)
[2017-08-18] MEDS: oxyCODONE (CR) 10 MG TAB [oxyCONTIN] PO SCH ×2 (08:16→21:07)
[2017-08-18] MEDS: CLOPIDOGREL 75 MG TAB PO SCH (08:16)
[2017-08-18] MEDS: DOCUSATE SODIUM 100 MG CAP PO SCH ×2 (08:16→21:06)
[2017-08-18] MEDS: CELECOXIB 200 MG CAP PO SCH ×2 (08:16→21:07)
[2017-08-18] MEDS: ENOXAPARIN 40 MG/0.4 ML SYG SC SCH (08:17)
[2017-08-18] MEDS: HYDROmorphONE 0.5 MG/0.5 ML SYG IV PRN ×2 (08:17→17:09)
--- NOTE | 2017-08-18 11:12 | CONS ---
Date/Time of Note Date/Time of Note DATE: 08/18/17 TIME: 11:11 Consult Date/Type/Reason Admit Date/Time Aug 14, 2017 at 22:53 Objective Vital Signs Date Time Temp Pulse Resp B/P Pulse Ox O2 Delivery O2 Flow Rate FiO2 08/18/17 08:00 85 20 94 21 08/18/17 07:00 98.7 170/82 08/17/17 08:00 Nasal Cannula 2.0 Intake and Output 08/17/17 08/17/17 08/18/17 14:59 22:59 06:59 Intake Total 800 ml 220 ml Output Total 600 ml 770 ml Balance 200 ml -550 ml INTERDISCIPLINARY TEAM CONFERENCE BOWEL- Cont BLADDER-Cont SKIN- intact OT- DRESSING-cga BATHING-cga/min TOILETING-min PT- BED MOBILITY-min TRANSFERS-min/mod AMBULATION-min 100 [address].C. MOBILITY-sba A/P- Interdisciplinary team conference held today. Please see interdisciplinary sheet. Working toward d.c. on 08/26 with post discharge follow up of physical therapy, occupational therapy. Results/Medications Result Diagram: 08/15/17 0601 08/15/17 0601 Medications Current Medications Pantoprazole (Protonix Tab) 40 mg DAILY@06 PO Last administered on 08/18/17 06:07; Admin Dose 40 MG; Start 08/15/17 at 06:00 Simethicone (Mylicon) 80 mg TID PRN PO DISTENSION/GAS/BLOATING; Start at 00:30 Sodium Biphosphate/ Sodium Phosphate (Fleet Enema) [address] CONSTIPATION; Start 08/15/17 at 00:30 Zolpidem Tartrate (Ambien) 5 mg HS PRN PO INSOMNIA; Start 08/15/17 at 00:30 Oxycodone HCl (Oxycontin) 10 mg BID PO Last administered on 08/18/17 08:16; Admin Dose 10 MG; Start 08/15/17 at 09:00 Miscellaneous Information (Note) FOR COUMADIN / LOVE... NOTE XX ; Start at 00:30 Docusate Sodium/ Ferrous Fumarate (Harry-Sequels) 1 tab BID PO Last administered on 08/18/17 08:16; Admin Dose 1 TAB; Start 08/15/17 at 09:00 Aspirin (Halfprin) 81 mg BID PO Last administered on 08/18/17 08:16; Admin Dose 81 MG; Start 08/15/17 at 09:00 Atorvastatin Calcium (Lipitor) 10 mg DAILY@21 PO Last administered on 20:37; Admin Dose 10 MG; Start 08/15/17 at 21:00 Bisacodyl (Dulcolax Supp) [address] CONSTIPATION; Start 08/15/17 at 00:30 Celecoxib (Celebrex) 200 mg BID PO Last administered on 08/18/17 08:16; Admin Dose 200 MG; Start 08/15/17 at 09:00 Clopidogrel Bisulfate (plaVIX) 75 mg DAILY PO Last administered on 08/18/17 08:16; Admin Dose 75 MG; Start 08/15/17 at 09:00 Senna/Docusate Sodium (Senokot-S) 2 tab BID PRN PO CONSTIPATION; Start at 03:05 Docusate Sodium (Colace) 100 mg BID PO Last administered on 08/18/17 08:16; Admin Dose 100 MG; Start 08/15/17 at 09:00 Acetaminophen (Tylenol Tab) 650 mg Q4H PRN PO PAIN; Start 08/15/17 at 04:30 Lactulose (Enulose) 20 gm DAILY PRN PO CONSTIPATION; Start 08/15/17 at 04:30 Magnesium Hydroxide (Milk Of Mag) 30 ml BID PRN PO CONSTIPATION; Start at 15:00 Bisacodyl (Dulcolax) 5 mg DAILY PRN PO CONSTIPATION Last administered on 08:16; Admin Dose 5 MG; Start 08/15/17 at 15:00 Enoxaparin Sodium (Lovenox) 40 mg DAILY SC Last administered on 08/18/17 08: 17; Admin Dose 40 MG; Start 08/15/17 at 15:00 Acetaminophen/ Hydrocodone Bitart ([place] (7.5-325)) 1 tab Q6H PRN PO pain Last administered on 08/16/17 22:52; Admin Dose 1 TAB; Start 08/16/17 at 09:30 Hydromorphone HCl (Dilaudid) 0.5 mg Q6H PRN IV PAIN Last administered on 08:17; Admin Dose 0.5 MG; Start 08/16/17 at 09:30 Ondansetron HCl (Zofran Inj) 4 mg Q6H PRN IV NAUSEA AND/OR VOMITING; Start at 09:30 Clonazepam (Klonopin) 1 mg DAILY PRN PO ANXIETY; Start 08/18/17 at 11:00; Status ALEJANDRA VICENTE MD Aug 18, 2017 11:12
--- NOTE | 2017-08-18 11:23 | CONS ---
Date/Time of Note Date/Time of Note DATE: 08/18/17 TIME: 11:22 Assessment/Plan Assessment/Plan Chief Complaint/Hosp Course 82-year-old male, status post right total knee replacement secondary to osteoarthritis, transferred to [facility] for further rehabilitation. 1. Osteoarthritis, status post right total knee replacement on 08/11/2017. -Postoperative follow-up with orthopedics. -Continue pain medications, PT eval and treatment. 2. Hypertension. Blood pressure stable. -Continue to monitor for now. 3. Hyperlipidemia. - Continue statin. 4. Obesity. -Lifestyle changes/weight reduction advised. 5. History of chronic obstructive pulmonary disease. No acute distress. -As needed bronchodilators. 6. Coronary artery disease status post coronary artery bypass grafting and stent placed in the past. -Continue aspirin and Plavix 7. Anemia, chronic. Stable H&H. 8. Pseudomonas aeruginosa/enterococcus UTI. Patient asymptomatic. -We will treat with Cipro 10 day duration. Prophylaxis: Lovenox. Plan: Urine culture possibly contamination. No indication for antibiotics at this time. Patient was seen in collaboration with . Problems: Consultation Date/Type/Reason Admit Date/Time Aug 14, 2017 at 22:53 24 HR Interval Summary Free Text/Dictation No acute distress. Exam/Review of Systems Vital Signs Vitals Vital Signs Date Time Temp Pulse Resp B/P Pulse Ox O2 Delivery O2 Flow Rate FiO2 08/18/17 08:00 85 20 94 21 08/18/17 07:00 98.7 170/82 08/17/17 08:00 Nasal Cannula 2.0 Intake and Output 08/17/17 08/17/17 08/18/17 15:00 23:00 07:00 Intake Total 800 ml 220 ml Output Total 600 ml 770 ml Balance 200 ml -550 ml Exam General: Well developed,adequately built, not in any acute distress . HEENT: Normocephalic, Atraumatic, No laceration or hematoma; Eyes: PEERL, Conjunctiva clear, Anicteric sclera Neck: Supple without any lymphadenopathy, nontender, no JVD, no carotid bruits, trachea midline, no thyromegaly Cardiac: S1, S2 auscultated, regular rhythm and rate, no mumurs or gallop Pulmonary: Normal respiratory effort. Chest clear to auscultation bilaterally, no adventitious breath sounds GI: Abdomen normal to inspection. Soft, non tender, non- distended, no masses, no rebound tenderness or guarding. Bowel sounds active on all four quadrants Genitourinary: Deferred Extremities: No cyanosis, clubbing, or edema. Pulses [2+] bilaterally. Full ROM on all four extremities. No focal weakness appreciated. Neurologic: Alert to person, place, time, and situation. Affect appropriate, intact sensation. Skin: Clean,dry, and intact. No ecchymosis, no rashes, or lesions Results Result Diagram: 08/15/1760008/15/17600 Medications Medications Current Medications Pantoprazole (Protonix Tab) 40 mg DAILY@06 PO Last administered on 08/18/17 06:07; Admin Dose 40 MG; Start 08/15/17 at 06:00 Simethicone (Mylicon) 80 mg TID PRN PO DISTENSION/GAS/BLOATING; Start at 00:30 Sodium Biphosphate/ Sodium Phosphate (Fleet Enema) 133 ml DAILY PRN [place] CONSTIPATION; Start 08/15/17 at 00:30 Zolpidem Tartrate (Ambien) 5 mg HS PRN PO INSOMNIA; Start 08/15/17 at 00:30 Oxycodone HCl (Oxycontin) 10 mg BID PO Last administered on 08/18/17 08:16; Admin Dose 10 MG; Start 08/15/17 at 09:00 Miscellaneous Information (Note) FOR COUMADIN / LOVE... NOTE XX ; Start at 00:30 Docusate Sodium/ Ferrous Fumarate (Harry-Sequels) 1 tab BID PO Last administered on 08/18/17 08:16; Admin Dose 1 TAB; Start 08/15/17 at 09:00 Aspirin (Halfprin) 81 mg BID PO Last administered on 08/18/17 08:16; Admin Dose 81 MG; Start 08/15/17 at 09:00 Atorvastatin Calcium (Lipitor) 10 mg DAILY@21 PO Last administered on 20:37; Admin Dose 10 MG; Start 08/15/17 at 21:00 Bisacodyl (Dulcolax Supp) 10 mg DAILY PRN [place] CONSTIPATION; Start 08/15/17 at 00:30 Celecoxib (Celebrex) 200 mg BID PO Last administered on 08/18/17 08:16; Admin Dose 200 MG; Start 08/15/17 at 09:00 Clopidogrel Bisulfate (plaVIX) 75 mg DAILY PO Last administered on 08/18/17 08:16; Admin Dose 75 MG; Start 08/15/17 at 09:00 Senna/Docusate Sodium (Senokot-S) 2 tab BID PRN PO CONSTIPATION; Start at 03:05 Docusate Sodium (Colace) 100 mg BID PO Last administered on 08/18/17 08:16; Admin Dose 100 MG; Start 08/15/17 at 09:00 Acetaminophen (Tylenol Tab) 650 mg Q4H PRN PO PAIN; Start 08/15/17 at 04:30 Lactulose (Enulose) 20 gm DAILY PRN PO CONSTIPATION; Start 08/15/17 at 04:30 Magnesium Hydroxide (Milk Of Mag) 30 ml BID PRN PO CONSTIPATION; Start at 15:00 Bisacodyl (Dulcolax) 5 mg DAILY PRN PO CONSTIPATION Last administered on 08:16; Admin Dose 5 MG; Start 08/15/17 at 15:00 Enoxaparin Sodium (Lovenox) 40 mg DAILY SC Last administered on 08/18/17 08: 17; Admin Dose 40 MG; Start 08/15/17 at 15:00 Acetaminophen/ Hydrocodone Bitart ([place] (7.5-325)) 1 tab Q6H PRN PO pain Last administered on 08/16/17 22:52; Admin Dose 1 TAB; Start 08/16/17 at 09:30 Hydromorphone HCl (Dilaudid) 0.5 mg Q6H PRN IV PAIN Last administered on 08:17; Admin Dose 0.5 MG; Start 08/16/17 at 09:30 Ondansetron HCl (Zofran Inj) 4 mg Q6H PRN IV NAUSEA AND/OR VOMITING; Start at 09:30 Clonazepam (Klonopin) 1 mg DAILY PRN PO ANXIETY; Start 08/18/17 at 11:00; Status AMY MUELLER NP Aug 18, 2017 11:23
[2017-08-18] MEDS: clonAZEPAM 0.5 MG TAB PO PRN (12:07)
[2017-08-18] MEDS: HYDROCODONE/APAP (7.5/325) TAB PO PRN (12:45)
[2017-08-18] MEDS: CIPROFLOXACIN 500 MG TAB PO SCH (17:09)
[2017-08-18 20:00] VITALS: BP 159/76; RESP 18
[2017-08-18] MEDS: ATORVASTATIN 10 MG TAB PO SCH (21:07)
[2017-08-19] MEDS: ALBUTEROL/IPRATROPIUM (NEB) 3 ML AMP HHN SCH ×7 (01:00→22:09)
[2017-08-19 02:00] VITALS: BP 154/72; RESP 18
[2017-08-19] MEDS: HYDROmorphONE 0.5 MG/0.5 ML SYG IV PRN ×2 (02:23→18:11)
[2017-08-19] MEDS: CIPROFLOXACIN 500 MG TAB PO SCH ×2 (05:21→17:48)
[2017-08-19] MEDS: PANTOPRAZOLE (EC) 40 MG TAB PO SCH (05:21)
[2017-08-19] MEDS: clonAZEPAM 0.5 MG TAB PO PRN ×2 (06:51→17:48)
[2017-08-19 07:30] VITALS: BP 177/87; RESP 18
[2017-08-19] MEDS: ENOXAPARIN 40 MG/0.4 ML SYG SC SCH (09:09)
[2017-08-19] MEDS: CLOPIDOGREL 75 MG TAB PO SCH (09:10)
[2017-08-19] MEDS: ASPIRIN (EC) 81 MG TAB PO SCH ×2 (09:10→21:21)
[2017-08-19] MEDS: CELECOXIB 200 MG CAP PO SCH ×2 (09:10→21:21)
[2017-08-19] MEDS: DOCUSATE SODIUM 100 MG CAP PO SCH ×2 (09:10→21:21)
[2017-08-19] MEDS: FERROUS FUMARATE (SR) TAB PO SCH ×2 (09:10→21:21)
[2017-08-19] MEDS: oxyCODONE (CR) 10 MG TAB [oxyCONTIN] PO SCH ×2 (09:10→21:22)
--- NOTE | 2017-08-19 10:23 | CONS ---
Date/Time of Note Date/Time of Note DATE: 08/19/17 TIME: 10:21 Consult Date/Type/Reason Admit Date/Time Aug 14, 2017 at 22:53 Subjective Better with therapies Objective mod transfer min 75 feet ambulation Vital Signs Date Time Temp Pulse Resp B/P Pulse Ox O2 Delivery O2 Flow Rate FiO2 08/19/17 07:30 98.1 76 18 177/87 95 08/18/17 21:32 21 08/17/17 08:00 Nasal Cannula 2.0 Intake and Output 08/18/17 08/18/17 08/19/17 15:00 23:00 07:00 Intake Total 950 ml Output Total 600 ml 850 ml Balance 350 ml -850 ml Results/Medications Result Diagram: 08/15/17 0608/15/17 06 Medications Current Medications Pantoprazole (Protonix Tab) 40 mg DAILY@06 PO Last administered on 08/19/17 05:21; Admin Dose 40 MG; Start 08/15/17 at 06:00 Simethicone (Mylicon) 80 mg TID PRN PO DISTENSION/GAS/BLOATING; Start at 00:30 Sodium Biphosphate/ Sodium Phosphate (Fleet Enema) 133 ml DAILY PRN [place] CONSTIPATION; Start 08/15/17 at 00:30 Zolpidem Tartrate (Ambien) 5 mg HS PRN PO INSOMNIA; Start 08/15/17 at 00:30 Oxycodone HCl (Oxycontin) 10 mg BID PO Last administered on 08/19/17 09:10; Admin Dose 10 MG; Start 08/15/17 at 09:00 Miscellaneous Information (Note) FOR COUMADIN / LOVE... NOTE XX ; Start at 00:30 Docusate Sodium/ Ferrous Fumarate (Harry-Sequels) 1 tab BID PO Last administered on 08/19/17 09:10; Admin Dose 1 TAB; Start 08/15/17 at 09:00 Aspirin (Halfprin) 81 mg BID PO Last administered on 08/19/17 09:10; Admin Dose 81 MG; Start 08/15/17 at 09:00 Atorvastatin Calcium (Lipitor) 10 mg DAILY@21 PO Last administered on 21:07; Admin Dose 10 MG; Start 08/15/17 at 21:00 Bisacodyl (Dulcolax Supp) 10 mg DAILY PRN [place] CONSTIPATION; Start 08/15/17 at 00:30 Celecoxib (Celebrex) 200 mg BID PO Last administered on 08/19/17 09:10; Admin Dose 200 MG; Start 08/15/17 at 09:00 Clopidogrel Bisulfate (plaVIX) 75 mg DAILY PO Last administered on 08/19/17 09:10; Admin Dose 75 MG; Start 08/15/17 at 09:00 Senna/Docusate Sodium (Senokot-S) 2 tab BID PRN PO CONSTIPATION; Start at 03:05 Docusate Sodium (Colace) 100 mg BID PO Last administered on 08/19/17 09:10; Admin Dose 100 MG; Start 08/15/17 at 09:00 Acetaminophen (Tylenol Tab) 650 mg Q4H PRN PO PAIN; Start 08/15/17 at 04:30 Lactulose (Enulose) 20 gm DAILY PRN PO CONSTIPATION; Start 08/15/17 at 04:30 Magnesium Hydroxide (Milk Of Mag) 30 ml BID PRN PO CONSTIPATION; Start at 15:00 Bisacodyl (Dulcolax) 5 mg DAILY PRN PO CONSTIPATION Last administered on 08:16; Admin Dose 5 MG; Start 08/15/17 at 15:00 Enoxaparin Sodium (Lovenox) 40 mg DAILY SC Last administered on 08/19/17 09: 09; Admin Dose 40 MG; Start 08/15/17 at 15:00 Acetaminophen/ Hydrocodone Bitart ([place] (7.5-325)) 1 tab Q6H PRN PO pain Last administered on 08/18/17 12:45; Admin Dose 1 TAB; Start 08/16/17 at 09:30 Hydromorphone HCl (Dilaudid) 0.5 mg Q6H PRN IV PAIN Last administered on 02:23; Admin Dose 0.5 MG; Start 08/16/17 at 09:30 Ondansetron HCl (Zofran Inj) 4 mg Q6H PRN IV NAUSEA AND/OR VOMITING; Start at 09:30 Clonazepam (Klonopin) 1 mg DAILY PRN PO ANXIETY Last administered on 06:51; Admin Dose 1 MG; Start 08/18/17 at 11:00 Ciprofloxacin (Cipro) 500 mg BID@06,18 PO Last administered on 08/19/17 05:21 ; Admin Dose 500 MG; Start 08/18/17 at 18:00; Stop 08/28/17 at 17:59 Assessment/Plan Additional Assessment/Plan Rehab-Other orthopedic disorder with severe osteoarthritis status post right total knee replacement. Improving activity tolerance, continuerehab. Anticipate home Friday Acute pain syndrome- continue pain meds History of chronic low back pain with history of back surgery. Obesity. Coronary artery disease with history of coronary artery bypass graft. Chronic obstructive pulmonary disease. Hyperlipidemia. History of left total knee replacement. ALEJANDRA BATEMAN MD Aug 19, 2017 10:23
--- NOTE | 2017-08-19 13:39 | CONS ---
Date/Time of Note Date/Time of Note DATE: 08/19/17 TIME: 13:38 Assessment/Plan Assessment/Plan Chief Complaint/Hosp Course 82-year-old male, status post right total knee replacement secondary to osteoarthritis, transferred to [facility] for further rehabilitation. 1. Osteoarthritis, status post right total knee replacement on 08/11/2017. -Postoperative follow-up with orthopedics. -Continue pain medications, PT eval and treatment. 2. Hypertension. -Resume propranolol that patient takes at home. 3. Hyperlipidemia. - Continue statin. 4. Obesity. -Lifestyle changes/weight reduction advised. 5. History of chronic obstructive pulmonary disease. No acute distress. -As needed bronchodilators. 6. Coronary artery disease status post coronary artery bypass grafting and stent placed in the past. -Continue aspirin and Plavix 7. Anemia, chronic. Stable H&H. 8. Pseudomonas aeruginosa/enterococcus UTI. Patient asymptomatic. -On Cipro 10 day duration. Prophylaxis: Lovenox. Patient was seen in collaboration with . Problems: Consultation Date/Type/Reason Admit Date/Time Aug 14, 2017 at 22:53 24 HR Interval Summary Free Text/Dictation Doing well. Blood pressure has been slightly up. Exam/Review of Systems Vital Signs Vitals Vital Signs Date Time Temp Pulse Resp B/P Pulse Ox O2 Delivery O2 Flow Rate FiO2 08/19/17 07:30 98.1 76 18 177/87 95 08/18/17 21:32 21 08/17/17 08:00 Nasal Cannula 2.0 Intake and Output 08/18/17 08/18/17 08/19/17 15:00 23:00 07:00 Intake Total 950 ml Output Total 600 ml 850 ml Balance 350 ml -850 ml Exam General: Well developed,adequately built, not in any acute distress . HEENT: Normocephalic, Atraumatic, No laceration or hematoma; Eyes: PEERL, Conjunctiva clear, Anicteric sclera Neck: Supple without any lymphadenopathy, nontender, no JVD, no carotid bruits, trachea midline, no thyromegaly Cardiac: S1, S2 auscultated, regular rhythm and rate, no mumurs or gallop Pulmonary: Normal respiratory effort. Chest clear to auscultation bilaterally, no adventitious breath sounds GI: Abdomen normal to inspection. Soft, non tender, non- distended, no masses, no rebound tenderness or guarding. Bowel sounds active on all four quadrants Genitourinary: Deferred Extremities: No cyanosis, clubbing, or edema. Pulses [2+] bilaterally. Full ROM on all four extremities. No focal weakness appreciated. Neurologic: Alert to person, place, time, and situation. Affect appropriate, intact sensation. Skin: Clean,dry, and intact. No ecchymosis, no rashes, or lesions Results Result Diagram: 08/15/1760008/15/17 06 Medications Medications Current Medications Pantoprazole (Protonix Tab) 40 mg DAILY@06 PO Last administered on 08/19/17 05:21; Admin Dose 40 MG; Start 08/15/17 at 06:00 Simethicone (Mylicon) 80 mg TID PRN PO DISTENSION/GAS/BLOATING; Start at 00:30 Sodium Biphosphate/ Sodium Phosphate (Fleet Enema) 133 ml DAILY PRN [place] CONSTIPATION; Start 08/15/17 at 00:30 Zolpidem Tartrate (Ambien) 5 mg HS PRN PO INSOMNIA; Start 08/15/17 at 00:30 Oxycodone HCl (Oxycontin) 10 mg BID PO Last administered on 08/19/17 09:10; Admin Dose 10 MG; Start 08/15/17 at 09:00 Miscellaneous Information (Note) FOR COUMADIN / LOVE... NOTE XX ; Start at 00:30 Docusate Sodium/ Ferrous Fumarate (Harry-Sequels) 1 tab BID PO Last administered on 08/19/17 09:10; Admin Dose 1 TAB; Start 08/15/17 at 09:00 Aspirin (Halfprin) 81 mg BID PO Last administered on 08/19/17 09:10; Admin Dose 81 MG; Start 08/15/17 at 09:00 Atorvastatin Calcium (Lipitor) 10 mg DAILY@21 PO Last administered on 21:07; Admin Dose 10 MG; Start 08/15/17 at 21:00 Bisacodyl (Dulcolax Supp) 10 mg DAILY PRN [place] CONSTIPATION; Start 08/15/17 at 00:30 Celecoxib (Celebrex) 200 mg BID PO Last administered on 08/19/17 09:10; Admin Dose 200 MG; Start 08/15/17 at 09:00 Clopidogrel Bisulfate (plaVIX) 75 mg DAILY PO Last administered on 08/19/17 09:10; Admin Dose 75 MG; Start 08/15/17 at 09:00 Senna/Docusate Sodium (Senokot-S) 2 tab BID PRN PO CONSTIPATION; Start at 03:05 Docusate Sodium (Colace) 100 mg BID PO Last administered on 08/19/17 09:10; Admin Dose 100 MG; Start 08/15/17 at 09:00 Acetaminophen (Tylenol Tab) 650 mg Q4H PRN PO PAIN; Start 08/15/17 at 04:30 Lactulose (Enulose) 20 gm DAILY PRN PO CONSTIPATION; Start 08/15/17 at 04:30 Magnesium Hydroxide (Milk Of Mag) 30 ml BID PRN PO CONSTIPATION; Start at 15:00 Bisacodyl (Dulcolax) 5 mg DAILY PRN PO CONSTIPATION Last administered on 08:16; Admin Dose 5 MG; Start 08/15/17 at 15:00 Enoxaparin Sodium (Lovenox) 40 mg DAILY SC Last administered on 08/19/17 09: 09; Admin Dose 40 MG; Start 08/15/17 at 15:00 Acetaminophen/ Hydrocodone Bitart ([place] (7.5-325)) 1 tab Q6H PRN PO pain Last administered on 08/18/17 12:45; Admin Dose 1 TAB; Start 08/16/17 at 09:30 Hydromorphone HCl (Dilaudid) 0.5 mg Q6H PRN IV PAIN Last administered on 02:23; Admin Dose 0.5 MG; Start 08/16/17 at 09:30 Ondansetron HCl (Zofran Inj) 4 mg Q6H PRN IV NAUSEA AND/OR VOMITING; Start at 09:30 Ciprofloxacin (Cipro) 500 mg BID@,18 PO Last administered on 08/19/17 05:21 ; Admin Dose 500 MG; Start 08/18/17 at 18:00; Stop 08/28/17 at 17:59 Clonazepam (Klonopin) 2 mg Q6 PRN PO ANXIETY; Start 08/19/17 at 12:00 AMY FU NP Aug 19, 2017 13:39
[2017-08-19 19:45] VITALS: BP 127/63; PULSE 73; RESP 18
[2017-08-19] MEDS: ATORVASTATIN 10 MG TAB PO SCH (21:21)
[2017-08-19] MEDS: PROPRANOLOL (LA) 60 MG CAP PO SCH (21:21)
[2017-08-19] MEDS: ONDANSETRON 4 MG INJ IV PRN (21:54)
[2017-08-20] MEDS: ALBUTEROL/IPRATROPIUM (NEB) 3 ML AMP HHN SCH ×6 (01:00→21:00)
[2017-08-20 02:00] VITALS: BP 119/64; PULSE 83; RESP 17
[2017-08-20] MEDS: HYDROmorphONE 0.5 MG/0.5 ML SYG IV PRN ×3 (02:28→17:13)
[2017-08-20] MEDS: PANTOPRAZOLE (EC) 40 MG TAB PO SCH (06:21)
[2017-08-20] MEDS: CIPROFLOXACIN 500 MG TAB PO SCH ×2 (06:21→17:13)
[2017-08-20 08:00] VITALS: BP 108/64; PULSE 85
[2017-08-20] MEDS: ONDANSETRON 4 MG INJ IV PRN (08:30)
[2017-08-20] MEDS: ENOXAPARIN 40 MG/0.4 ML SYG SC SCH (08:31)
[2017-08-20] MEDS: clonAZEPAM 0.5 MG TAB PO PRN (08:32)
[2017-08-20] MEDS: ASPIRIN (EC) 81 MG TAB PO SCH ×2 (08:34→21:00)
[2017-08-20] MEDS: CELECOXIB 200 MG CAP PO SCH ×2 (08:34→21:00)
[2017-08-20] MEDS: CLOPIDOGREL 75 MG TAB PO SCH (08:34)
[2017-08-20] MEDS: FERROUS FUMARATE (SR) TAB PO SCH ×2 (08:34→21:00)
[2017-08-20] MEDS: DOCUSATE SODIUM 100 MG CAP PO SCH ×2 (08:35→21:00)
[2017-08-20] MEDS: PROPRANOLOL (LA) 60 MG CAP PO SCH ×2 (08:36→21:00)
--- NOTE | 2017-08-20 09:09 | CONS ---
Date/Time of Note Date/Time of Note DATE: 08/20/17 TIME: 09:08 Assessment/Plan Assessment/Plan Chief Complaint/Hosp Course 82-year-old male, status post right total knee replacement secondary to osteoarthritis, transferred to [facility] for further rehabilitation. 1. Osteoarthritis, status post right total knee replacement on 08/11/2017. -Postoperative follow-up with orthopedics. -Continue pain medications, PT eval and treatment. 2. Hypertension. -Resume propranolol that patient takes at home. 3. Hyperlipidemia. - Continue statin. 4. Obesity. -Lifestyle changes/weight reduction advised. 5. History of chronic obstructive pulmonary disease. No acute distress. -As needed bronchodilators. 6. Coronary artery disease status post coronary artery bypass grafting and stent placed in the past. -Continue aspirin and Plavix 7. Anemia, chronic. Stable H&H. 8. Pseudomonas aeruginosa/enterococcus UTI. Patient asymptomatic. -On Cipro 10 day duration. Prophylaxis: Lovenox. Patient was seen in collaboration with . Problems: Consultation Date/Type/Reason Admit Date/Time Aug 14, 2017 at 22:53 24 HR Interval Summary Free Text/Dictation No acute distress. Exam/Review of Systems Vital Signs Vitals Vital Signs Date Time Temp Pulse Resp B/P Pulse Ox O2 Delivery O2 Flow Rate FiO2 08/20/17 02:00 98.2 83 17 119/64 90 Room Air 08/19/17 22:10 21 08/19/17 20:30 2.0 Intake and Output 08/19/17 08/19/17 08/20/17 15:00 23:00 07:00 Intake Total 200 ml Output Total 100 ml 150 ml Balance 100 ml -150 ml Exam General: Well developed,adequately built, not in any acute distress . HEENT: Normocephalic, Atraumatic, No laceration or hematoma; Eyes: PEERL, Conjunctiva clear, Anicteric sclera Neck: Supple without any lymphadenopathy, nontender, no JVD, no carotid bruits, trachea midline, no thyromegaly Cardiac: S1, S2 auscultated, regular rhythm and rate, no mumurs or gallop Pulmonary: Normal respiratory effort. Chest clear to auscultation bilaterally, no adventitious breath sounds GI: Abdomen normal to inspection. Soft, non tender, non- distended, no masses, no rebound tenderness or guarding. Bowel sounds active on all four quadrants Genitourinary: Deferred Extremities: No cyanosis, clubbing, or edema. Pulses [2+] bilaterally. Full ROM on all four extremities. No focal weakness appreciated. Neurologic: Alert to person, place, time, and situation. Affect appropriate, intact sensation. Skin: Clean,dry, and intact. No ecchymosis, no rashes, or lesions Medications Medications Current Medications Pantoprazole (Protonix Tab) 40 mg DAILY@06 PO Last administered on 08/20/17 06:21; Admin Dose 40 MG; Start 08/15/17 at 06:00 Simethicone (Mylicon) 80 mg TID PRN PO DISTENSION/GAS/BLOATING Last administered on 08/20/17 08:35; Admin Dose 80 MG; Start 08/15/17 at 00:30 Sodium Biphosphate/ Sodium Phosphate (Fleet Enema) 133 ml DAILY PRN [place] CONSTIPATION; Start 08/15/17 at 00:30 Zolpidem Tartrate (Ambien) 5 mg HS PRN PO INSOMNIA; Start 08/15/17 at 00:30 Oxycodone HCl (Oxycontin) 10 mg BID PO Last administered on 08/19/17 21:22; Admin Dose 10 MG; Start 08/15/17 at 09:00 Miscellaneous Information (Note) FOR COUMADIN / LOVE... NOTE XX ; Start at 00:30 Docusate Sodium/ Ferrous Fumarate (Harry-Sequels) 1 tab BID PO Last administered on 08/20/17 08:34; Admin Dose 1 TAB; Start 08/15/17 at 09:00 Aspirin (Halfprin) 81 mg BID PO Last administered on 08/20/17 08:34; Admin Dose 81 MG; Start 08/15/17 at 09:00 Atorvastatin Calcium (Lipitor) 10 mg DAILY@21 PO Last administered on 21:21; Admin Dose 10 MG; Start 08/15/17 at 21:00 Bisacodyl (Dulcolax Supp) 10 mg DAILY PRN [place] CONSTIPATION; Start 08/15/17 at 00:30 Celecoxib (Celebrex) 200 mg BID PO Last administered on 08/20/17 08:34; Admin Dose 200 MG; Start 08/15/17 at 09:00 Clopidogrel Bisulfate (plaVIX) 75 mg DAILY PO Last administered on 08/20/17 08:34; Admin Dose 75 MG; Start 08/15/17 at 09:00 Senna/Docusate Sodium (Senokot-S) 2 tab BID PRN PO CONSTIPATION; Start at 03:05 Docusate Sodium (Colace) 100 mg BID PO Last administered on 08/20/17 08:35; Admin Dose 100 MG; Start 08/15/17 at 09:00 Acetaminophen (Tylenol Tab) 650 mg Q4H PRN PO PAIN; Start 08/15/17 at 04:30 Lactulose (Enulose) 20 gm DAILY PRN PO CONSTIPATION Last administered on 17:57; Admin Dose 20 GM; Start 08/15/17 at 04:30 Magnesium Hydroxide (Milk Of Mag) 30 ml BID PRN PO CONSTIPATION; Start at 15:00 Bisacodyl (Dulcolax) 5 mg DAILY PRN PO CONSTIPATION Last administered on 08:16; Admin Dose 5 MG; Start 08/15/17 at 15:00 Enoxaparin Sodium (Lovenox) 40 mg DAILY SC Last administered on 08/20/17 08: 31; Admin Dose 40 MG; Start 08/15/17 at 15:00 Acetaminophen/ Hydrocodone Bitart ([place] (7.5-325)) 1 tab Q6H PRN PO pain Last administered on 08/18/17 12:45; Admin Dose 1 TAB; Start 08/16/17 at 09:30 Hydromorphone HCl (Dilaudid) 0.5 mg Q6H PRN IV PAIN Last administered on 08:30; Admin Dose 0.5 MG; Start 08/16/17 at 09:30 Ondansetron HCl (Zofran Inj) 4 mg Q6H PRN IV NAUSEA AND/OR VOMITING Last administered on 08/20/17 08:30; Admin Dose 4 MG; Start 08/18/17 at 09:30 Ciprofloxacin (Cipro) 500 mg BID@,18 PO Last administered on 08/20/17 06:21 ; Admin Dose 500 MG; Start 08/18/17 at 18:00; Stop 08/28/17 at 17:59 Clonazepam (Klonopin) 2 mg Q6 PRN PO ANXIETY Last administered on 08/19/17 17 :48; Admin Dose 2 MG; Start 08/19/17 at 12:00 Propranolol HCl (Inderal La) 60 mg BID PO Last administered on 08/19/17 21:21 ; Admin Dose 60 MG; Start 08/19/17 at 21:00 AMY FU NP Aug 20, 2017 09:09
[2017-08-20] MEDS: oxyCODONE (CR) 10 MG TAB [oxyCONTIN] PO SCH ×2 (10:23→21:00)
--- NOTE | 2017-08-20 11:32 | CONS ---
Date/Time of Note Date/Time of Note DATE: 08/20/17 TIME: 11:29 Consult Date/Type/Reason Admit Date/Time Aug 14, 2017 at 22:53 Subjective Therapy staff reports patient with some confuusion yesterday, and today with abdominal discomfort. He reports he has had a BM, but does have stomach discomfort Objective pulm-cta abd-(+) B.S. min transfer and ambulation 150 feet Vital Signs Date Time Temp Pulse Resp B/P Pulse Ox O2 Delivery O2 Flow Rate FiO2 08/20/17 02:00 98.2 83 17 119/64 90 Room Air 08/19/17 22:10 21 08/19/17 20:30 2.0 Intake and Output 08/19/17 08/19/17 08/20/17 14:59 22:59 06:59 Intake Total 200 ml Output Total 100 ml 150 ml Balance 100 ml -150 ml Results/Medications Medications Current Medications Pantoprazole (Protonix Tab) 40 mg DAILY@06 PO Last administered on 08/20/17 06:21; Admin Dose 40 MG; Start 08/15/17 at 06:00 Simethicone (Mylicon) 80 mg TID PRN PO DISTENSION/GAS/BLOATING Last administered on 08/20/17 08:35; Admin Dose 80 MG; Start 08/15/17 at 00:30 Sodium Biphosphate/ Sodium Phosphate (Fleet Enema) 133 ml DAILY PRN [place] CONSTIPATION; Start 08/15/17 at 00:30 Zolpidem Tartrate (Ambien) 5 mg HS PRN PO INSOMNIA; Start 08/15/17 at 00:30 Oxycodone HCl (Oxycontin) 10 mg BID PO Last administered on 08/20/17 10:23; Admin Dose 10 MG; Start 08/15/17 at 09:00 Miscellaneous Information (Note) FOR COUMADIN / LOVE... NOTE XX ; Start at 00:30 Docusate Sodium/ Ferrous Fumarate (Harry-Sequels) 1 tab BID PO Last administered on 08/20/17 08:34; Admin Dose 1 TAB; Start 08/15/17 at 09:00 Aspirin (Halfprin) 81 mg BID PO Last administered on 08/20/17 08:34; Admin Dose 81 MG; Start 08/15/17 at 09:00 Atorvastatin Calcium (Lipitor) 10 mg DAILY@21 PO Last administered on 21:21; Admin Dose 10 MG; Start 08/15/17 at 21:00 Bisacodyl (Dulcolax Supp) 10 mg DAILY PRN [place] CONSTIPATION; Start 08/15/17 at 00:30 Celecoxib (Celebrex) 200 mg BID PO Last administered on 08/20/17 08:34; Admin Dose 200 MG; Start 08/15/17 at 09:00 Clopidogrel Bisulfate (plaVIX) 75 mg DAILY PO Last administered on 08/20/17 08:34; Admin Dose 75 MG; Start 08/15/17 at 09:00 Senna/Docusate Sodium (Senokot-S) 2 tab BID PRN PO CONSTIPATION; Start at 03:05 Docusate Sodium (Colace) 100 mg BID PO Last administered on 08/20/17 08:35; Admin Dose 100 MG; Start 08/15/17 at 09:00 Acetaminophen (Tylenol Tab) 650 mg Q4H PRN PO PAIN; Start 08/15/17 at 04:30 Lactulose (Enulose) 20 gm DAILY PRN PO CONSTIPATION Last administered on 17:57; Admin Dose 20 GM; Start 08/15/17 at 04:30 Magnesium Hydroxide (Milk Of Mag) 30 ml BID PRN PO CONSTIPATION; Start at 15:00 Bisacodyl (Dulcolax) 5 mg DAILY PRN PO CONSTIPATION Last administered on 08:16; Admin Dose 5 MG; Start 08/15/17 at 15:00 Enoxaparin Sodium (Lovenox) 40 mg DAILY SC Last administered on 08/20/17 08: 31; Admin Dose 40 MG; Start 08/15/17 at 15:00 Acetaminophen/ Hydrocodone Bitart ([place] (7.5-325)) 1 tab Q6H PRN PO pain Last administered on 08/18/17 12:45; Admin Dose 1 TAB; Start 08/16/17 at 09:30 Hydromorphone HCl (Dilaudid) 0.5 mg Q6H PRN IV PAIN Last administered on 08:30; Admin Dose 0.5 MG; Start 08/16/17 at 09:30 Ondansetron HCl (Zofran Inj) 4 mg Q6H PRN IV NAUSEA AND/OR VOMITING Last administered on 08/20/17 08:30; Admin Dose 4 MG; Start 08/18/17 at 09:30 Ciprofloxacin (Cipro) 500 mg BID@,18 PO Last administered on 08/20/17 06:21 ; Admin Dose 500 MG; Start 08/18/17 at 18:00; Stop 08/28/17 at 17:59 Clonazepam (Klonopin) 2 mg Q6 PRN PO ANXIETY Last administered on 08/19/17 17 :48; Admin Dose 2 MG; Start 08/19/17 at 12:00 Propranolol HCl (Inderal La) 60 mg BID PO Last administered on 08/19/17 21:21 ; Admin Dose 60 MG; Start 08/19/17 at 21:00 Assessment/Plan Additional Assessment/Plan Rehab-Other orthopedic disorder with severe osteoarthritis status post right total knee replacement. Activities as tolerated GI- check labs and KUB Acute pain syndrome- continue pain meds Cognition- Eval by neuropsychologist History of chronic low back pain with history of back surgery. Obesity. Coronary artery disease with history of coronary artery bypass graft. Chronic obstructive pulmonary disease. Hyperlipidemia. History of left total knee replacement. ALEJANDRA BATEMAN MD Aug 20, 2017 11:32
[2017-08-20 12:27] LABS: BASOPHIL # 0.1 10^3/ul (0.0-0.1); BASOPHILS % 0.7 % (0.0-2.0); EOSINOPHILS # 0.3 10^3/ul (0.0-0.5); HEMATOCRIT 39.3 % (42.0-52.0); HEMOGLOBIN 13.1 g/dl (14.0-18.0); LYMPHOCYTES # 1.3 10^3/ul (0.8-2.9); LYMPHOCYTES % 9.1 % (15.0-51.0); MEAN CORPUSCULAR HGB CONC 33.3 g/dl (32.0-37.0); MEAN CORPUSCULAR VOLUME 92.9 fl (82.0-101.0); MEAN PLATELET VOLUME 10.1 fl (7.4-10.4); MONOCYTE # 1.3 10^3/ul (0.3-0.9); MONOCYTES % 8.8 % (0.0-11.0); NEUTROPHIL # 11.2 10^3/ul (1.6-7.5); NEUTROPHILS % 78.4 % (39.0-77.0); POSITIVE DIFF @See below; RED BLOOD COUNT 4.23 10^6/ul (4.70-6.10); RED CELL DISTRIBUTION WIDTH 13.3 % (11.5-14.5); WHITE BLOOD COUNT 14.3 10^3/ul (4.8-10.8)
[2017-08-20 12:41] LABS: PLATELET COUNT 314 10^3/UL (140-415)
[2017-08-20 12:55] LABS: ALBUMIN 3.7 g/dl (3.3-4.9); ALBUMIN/GLOBULIN RATIO 1.08; BILIRUBIN,INDIRECT 0.4 mg/dl (0-1.1); BILIRUBIN,TOTAL 0.4 mg/dl (0.2-1.3); CREATININE 1.08 mg/dl (0.61-1.24); POTASSIUM 3.2 mmol/L (3.5-5.1); TOTAL PROTEIN 7.1 g/dl (6.1-8.1)
[2017-08-20 16:00] VITALS: BP 122/64; RESP 18
--- NOTE | 2017-08-20 16:51 | RADRPT ---
PROCEDURE: XR Abdomen. CLINICAL INDICATION: Pain TECHNIQUE: 3 AP abdominal x-rays COMPARISON: None. FINDINGS: There are dilated small bowel loops measuring up to approximately 4.7 cm diameter and dilatation of the colon with maximal diameter of the cecum approximately 13.8 cm. The findings are most suggestive of ileus. Sternal wires. Surgical clips in left upper quadrant of abdomen. Increased density at lef t lung base likely atelectasis. Fusion changes L2 through L5. Calcific densities projected over the pelvis bilaterally could be secondary to calcified injection granulomas in the buttocks. IMPRESSION: There are dilated small bowel loops measuring up to approximately 4.7 cm diameter and dilatation of the colon with maximal diameter of the cecum approximately 13.8 cm. The findings are most suggestive of ileus. Discussed with Lorena Boo at 04:47 p.m. on 08/20/2017. RPTAT: HJES .Tahir Christensen MD, MD Date Time Electronically viewed and signed by .Tahir Christensen MD, MD on 08/20/2017 16:51 .S/
[2017-08-20] MEDS ORDERED: POTASSIUM CHLORIDE 250 ML IVPB ONE (17:30)
--- NOTE | 2017-08-20 17:39 | QN ---
Documentation Comment Hospitalist cross cover notification note called by RN that XR ordered by primary earlier today concerning for ileus. Report and imaging reviewed. Indeed, patient appears with have ileus PLAN NPO, Cheryl NGT to LIS replete lytes, does not appear K was repleted this AM will also check mag check AM lytes as well notified MD/PROCESS LABORATORY SPECIALIST who have been following for medical management MARGARITA CASEY MD Aug 20, 2017 17:39
[2017-08-20] MEDS: SOD CHLORIDE 0.9% 1,000 ML IV SCH (19:03)
[2017-08-20 20:00] VITALS: BP 124/61; RESP 18
[2017-08-20] MEDS: ATORVASTATIN 10 MG TAB PO SCH (21:00)
[2017-08-21] VITALS: BP 127/67; RESP 18
[2017-08-21] MEDS: ALBUTEROL/IPRATROPIUM (NEB) 3 ML AMP HHN SCH ×4 (01:00→13:00)
[2017-08-21] MEDS: SOD CHLORIDE 0.9% 1,000 ML IV SCH ×2 (02:00→10:42)
[2017-08-21] MEDS: HYDROmorphONE 0.5 MG/0.5 ML SYG IV PRN (02:48)
--- NOTE | 2017-08-21 03:02 | CONS ---
DATE OF ADMISSION: 08/14/2017 DATE OF CONSULTATION: 08/20/2017 TYPE OF CONSULTATION: Psychological. REFERRING PHYSICIAN: Alejandra Esquivel MD CONSULTING PSYCHOLOGIST: Kaylynn Winkler, PhD REASON FOR CONSULTATION: This consultation was requested by Dr. Amrita Esquivel in order to evaluate the cognitive and emotional functioning of this patient related to his present medical condition. HISTORY OF PRESENT ILLNESS: The patient is an 82-year-old male. He has numerous medical problems. The patient has previously had a left total knee replacement in the past and was having problems wa lking and he then was admitted to the hospital for a total right knee replacement. The patient did have some medical problems after the surgery and was cleared medically, but then transferred to the acute rehabilitation unit for acute multidisciplinary rehabilitation. The [facility]: Obesity, coronary artery disease with history of coronary artery bypass gr aft, chronic obstructive pulmonary disease, hyperlipidemia, history of total left knee replacement a nd a history of lumbar surgery. The patient is frustrated with his being sick. The patient does wa nt to get better and get home. The patient reports that he wants to do as well as he can as fast as he can, so he can go home. The patient does admit to being depressed. The patient was having some difficulty handling his emotions over his being disabled at the present time. The patient is prese ntly on oxygen, which he says he was not on prior to entering the hospital. The patient does want t o cooperate and do as well as he can in the program. FAMILY AND SOCIAL HISTORY: The patient reports that he lives in a home at [place]. The pa javier reports that he lives with his and wants to return there. The patient states that his Go [facility] lives there as well. The patient does say that there are 5 steps to enter his home. The patient does want to return there after discharge. MEDICATIONS: The patient is currently on: 1. Klonopin 2 mg p.r.n. q.6 hours. 2. Ambien 5 mg at bedtime p.r.n. SUBSTANCE USE: The patient reports that he does not smoke. The patient reports that he does not us e alcohol or other drugs. MENTAL STATUS EXAMINATION: APPEARANCE: The patient was seen in bed. He is of average height and obese. The patient is on oxy gen. The patient reports that he is right-handed. BEHAVIOR: The patient was cooperative during the consultation. The patient did attempt to answer a ll questions presented to him by the interviewer. MOOD AND AFFECT: The patient's mood appears to be depressed. Affect does appear to be slightly anx ious. The patient is aware of this and verbal about it. PERCEPTION: The patient reports no hallucinations or delusions. The patient was alert to person, p lace, situation and time. MEMORY AND COGNITION: The patient's memory and cognition were basically intact. He was able to edgardo ntually name the hospital, but he did struggle with it. The patient was able to do 5 serial seven s ubtractions from 100. He did make 1 error, but self-corrected. He did know the month and the year. However, the patient was able to only say who the trouble locater is, he could not say who the governor of the state or the mayor of the [facility] is. The patient could not spell "world" backwards. Overall, the patient's cognitions are basically intact, but there does seem to be some v jackie slight mild cognitive impairment present. Given his age and all of his medical problems, he maria luisa ears to be overall adequately functioning cognitively. It is noticed, however, that the patient sta kalee he was and he was living with his , and the face sheet states him as being sin gle. He does state that the person who is his spokesperson is his ex-. INTELLIGENCE: Intelligence appears to fall in the average range overall. INSIGHT: Fair. JUDGMENT: Fair. THOUGHT CONTENT: The patient admits to a level of frustration, he wants to get well and get out of the hospital. He states that he is depressed about his present condition and is motivated to improv e. DISCUSSION: The patient can likely benefit from some cognitive/behavioral psychotherapy while he is on the unit. This psychotherapy would focus on his underlying level of frustration and depression related to all of his medical problems. DIAGNOSTIC IMPRESSION: 1. F06.31, mood disorder due to multiple medical problems with depressive features. 2. 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 Thank you very much, Dr. Amrita Esquivel, for referring this individual. Please do not hesitate to ca ll if you have additional questions. Dictated By: KAYLYNN WINKLER PHD RK/BRANDON Conf#: [id number] DID#: [id number] CC: ALEJANDRA ESQUIVEL MD;*EndCC*
[2017-08-21] MEDS: PANTOPRAZOLE (EC) 40 MG TAB PO SCH (05:50)
[2017-08-21] MEDS: CIPROFLOXACIN 500 MG TAB PO SCH (05:50)
[2017-08-21] MEDS: METOCLOPRAMIDE 10 MG INJ IV SCH ×3 (06:17→12:53)
[2017-08-21 07:00] VITALS: BP 148/72; RESP 18
[2017-08-21 07:55] LABS: CALCIUM 9.1 mg/dl (8.4-10.2); CREATININE 1.38 mg/dl (0.61-1.24); MAGNESIUM 1.8 mg/dl (1.7-2.5); POTASSIUM 3.1 mmol/L (3.5-5.1)
[2017-08-21] MEDS: oxyCODONE (CR) 10 MG TAB [oxyCONTIN] PO SCH (09:00)
[2017-08-21] MEDS: ASPIRIN (EC) 81 MG TAB PO SCH (09:00)
[2017-08-21] MEDS: CLOPIDOGREL 75 MG TAB PO SCH (09:00)
[2017-08-21] MEDS: FERROUS FUMARATE (SR) TAB PO SCH (09:00)
[2017-08-21] MEDS: DOCUSATE SODIUM 100 MG CAP PO SCH (09:00)
[2017-08-21] MEDS: CELECOXIB 200 MG CAP PO SCH (09:00)
[2017-08-21] MEDS ORDERED: BARIUM SULF 2% 450 ML BTL (BERRY SMOOTHIE) PO ONE ×2 (10:00)
[2017-08-21] MEDS: PROPRANOLOL (LA) 60 MG CAP PO SCH (10:01)
[2017-08-21] MEDS: ENOXAPARIN 40 MG/0.4 ML SYG SC SCH (10:02)
[2017-08-21] MEDS ORDERED: POTASSIUM CHLORIDE 250 ML IVPB ONE (12:00)
--- NOTE | 2017-08-21 12:23 | CONS ---
Date/Time of Note Date/Time of Note DATE: 08/21/17 TIME: 12:14 Assessment/Plan Assessment/Plan Chief Complaint/Hosp Course 82-year-old male, status post right total knee replacement secondary to osteoarthritis, transferred to [facility] for further rehabilitation. 1. Osteoarthritis, status post right total knee replacement on 08/11/2017. -Postoperative follow-up with orthopedics. -Continue pain medications, PT eval and treatment. 2. Abdominal distention/bloating, suspect ileus.Possibly secondary to opioid induced?? -Obtain CT abdomen with oral contrast -Bowel rest,IV hydration. -Fleet enema,around bita clock Reglan, PRN antiemetics. -Cut down opioids. -Add A1C to labs 3. Hypertension. -Continue propranolol that patient takes at home. 4. Hyperlipidemia. - Continue statin. 5. Obesity. -Lifestyle changes/weight reduction advised. 6. History of chronic obstructive pulmonary disease. No acute distress. -As needed bronchodilators. 6. Coronary artery disease status post coronary artery bypass grafting and stent placed in the past. -Continue aspirin and Plavix 7. Anemia, chronic. Stable H&H. 8. Pseudomonas aeruginosa/enterococcus UTI. -On Cipro 10 doses-last dose tomorrow. 9. Constipation. -Continue stool softeners, laxatives PRN and Fleet Enema PRN. -Stop lactulose as this increase patient's abdominal discomfort. Prophylaxis: Lovenox. Plan: Follow-up on CT studies. Will consider transferring patient back to [facility] acute side if indicated per CT findings. Patient was seen in collaboration with . Problems: Consultation Date/Type/Reason Admit Date/Time Aug 14, 2017 at 22:53 24 HR Interval Summary Free Text/Dictation Since yesterday, patient has been having increased abdominal distention. He has been having normal bowel movements. Patient did not have any nausea or vomiting and he was tolerating diet. However, upon my examination today, his abdomen is significantly distended and there is no bowel sounds appreciated at this time. Please note that patient has not been activity participating with physical therapy in the rehabilitation unit. Exam/Review of Systems Vital Signs Vitals Vital Signs Date Time Temp Pulse Resp B/P Pulse Ox O2 Delivery O2 Flow Rate FiO2 08/21/17 07:00 99.3 95 18 148/72 90 08/21/17 05:05 2.0 08/20/17 20:00 Nasal Cannula 08/19/17 22:10 21 Intake and Output 08/20/17 08/20/17 08/21/17 14:59 22:59 06:59 Intake Total 1125 ml Output Total 500 ml Balance 625 ml Exam General: Well developed,adequately built, not in any acute distress . HEENT: Normocephalic, Atraumatic, No laceration or hematoma; Eyes: PEERL, Conjunctiva clear, Anicteric sclera Neck: Supple without any lymphadenopathy, nontender, no JVD, no carotid bruits, trachea midline, no thyromegaly Cardiac: S1, S2 auscultated, regular rhythm and rate, no mumurs or gallop Pulmonary: Normal respiratory effort. Chest clear to auscultation bilaterally, no adventitious breath sounds GI: Abdomen distended to inspection. No bowel sounds. non tender, no masses, no rebound tenderness or guarding. Extremities: No cyanosis, clubbing, or edema. Pulses [2+] bilaterally. Full ROM on all four extremities. No focal weakness appreciated. Neurologic: Alert to person, place, time, and situation. Affect appropriate, intact sensation. Skin: Clean,dry, and intact. No ecchymosis, no rashes, or lesions Results Result Diagram: 08/20/17 1200 08/21/17 0625 Results 24 hrs Laboratory Tests Test 08/21/17 06:25 Sodium Level 143 Potassium Level 3.1 L Chloride Level 108 Carbon Dioxide Level 21 Anion Gap 17 H Blood Urea Nitrogen 31 H Creatinine 1.38 H Glucose Level 108 Calcium Level 9.1 Phosphorus Level 5.0 H Magnesium Level 1.8 Medications Medications Current Medications Pantoprazole (Protonix Tab) 40 mg DAILY@06 PO Last administered on 08/20/17 06:21; Admin Dose 40 MG; Start 08/15/17 at 06:00 Simethicone (Mylicon) 80 mg TID PRN PO DISTENSION/GAS/BLOATING Last administered on 08/20/17 08:35; Admin Dose 80 MG; Start 08/15/17 at 00:30 Sodium Biphosphate/ Sodium Phosphate (Fleet Enema) 133 ml DAILY PRN [place] CONSTIPATION; Start 08/15/17 at 00:30 Zolpidem Tartrate (Ambien) 5 mg HS PRN PO INSOMNIA; Start 08/15/17 at 00:30 Oxycodone HCl (Oxycontin) 10 mg BID PO Last administered on 08/20/17 10:23; Admin Dose 10 MG; Start 08/15/17 at 09:00 Miscellaneous Information (Note) FOR COUMADIN / LOVE... NOTE XX ; Start at 00:30 Docusate Sodium/ Ferrous Fumarate ([place]-Sequels) 1 tab BID PO Last administered on 08/20/17 08:34; Admin Dose 1 TAB; Start 08/15/17 at 09:00 Aspirin (Halfprin) 81 mg BID PO Last administered on 08/20/17 08:34; Admin Dose 81 MG; Start 08/15/17 at 09:00 Atorvastatin Calcium (Lipitor) 10 mg DAILY@21 PO Last administered on 21:21; Admin Dose 10 MG; Start 08/15/17 at 21:00 Bisacodyl (Dulcolax Supp) 10 mg DAILY PRN [place] CONSTIPATION; Start 08/15/17 at 00:30 Celecoxib (Celebrex) 200 mg BID PO Last administered on 08/20/17 08:34; Admin Dose 200 MG; Start 08/15/17 at 09:00 Clopidogrel Bisulfate (plaVIX) 75 mg DAILY PO Last administered on 08/20/17 08:34; Admin Dose 75 MG; Start 08/15/17 at 09:00 Senna/Docusate Sodium (Senokot-S) 2 tab BID PRN PO CONSTIPATION; Start at 03:05 Docusate Sodium (Colace) 100 mg BID PO Last administered on 08/20/17 08:35; Admin Dose 100 MG; Start 08/15/17 at 09:00 Acetaminophen (Tylenol Tab) 650 mg Q4H PRN PO PAIN; Start 08/15/17 at 04:30 Lactulose (Enulose) 20 gm DAILY PRN PO CONSTIPATION Last administered on 17:57; Admin Dose 20 GM; Start 08/15/17 at 04:30 Magnesium Hydroxide (Milk Of Mag) 30 ml BID PRN PO CONSTIPATION; Start at 15:00 Bisacodyl (Dulcolax) 5 mg DAILY PRN PO CONSTIPATION Last administered on 08:16; Admin Dose 5 MG; Start 08/15/17 at 15:00 Enoxaparin Sodium (Lovenox) 40 mg DAILY SC Last administered on 08/21/17 10: 02; Admin Dose 40 MG; Start 08/15/17 at 15:00 Acetaminophen/ Hydrocodone Bitart ([place] (7.5-325)) 1 tab Q6H PRN PO pain Last administered on 08/18/17 12:45; Admin Dose 1 TAB; Start 08/16/17 at 09:30 Hydromorphone HCl (Dilaudid) 0.5 mg Q6H PRN IV PAIN Last administered on 02:48; Admin Dose 0.5 MG; Start 08/16/17 at 09:30 Ondansetron HCl (Zofran Inj) 4 mg Q6H PRN IV NAUSEA AND/OR VOMITING Last administered on 08/20/17 08:30; Admin Dose 4 MG; Start 08/18/17 at 09:30 Ciprofloxacin (Cipro) 500 mg BID@06,18 PO Last administered on 08/20/17 17:13 ; Admin Dose 500 MG; Start 08/18/17 at 18:00; Stop 08/22/17 at 21:00 Clonazepam (Klonopin) 2 mg Q6 PRN PO ANXIETY Last administered on 08/19/17 17 :48; Admin Dose 2 MG; Start 08/19/17 at 12:00 Propranolol HCl 60 mg 60 mg BID PO Last administered on 08/21/17 10:01; Admin Dose 60 MG; Start 08/19/17 at 21:00 Sodium Chloride (NS) 1,000 ml @ 125 mls/hr Q8H IV Last administered on 10:42; Admin Dose 125 MLS/HR; Start 08/20/17 at 18:00 Metoclopramide HCl 10 mg 10 mg Q6 IV Last administered on 08/21/17 06:17; Admin Dose 10 MG; Start 08/21/17 at 00:00 Potassium Chloride (KCl 40 MEQ/250 ML NS) 250 ml @ 62.5 mls/hr ONCE ONCE IVPB ; Start 08/21/17 at 12:00; Stop 08/21/17 at 15:59 AMY FU V. EMBLEM DRAWER IN Aug 21, 2017 12:23
--- NOTE | 2017-08-21 12:27 | CONS ---
Date/Time of Note Date/Time of Note DATE: 08/21/17 TIME: 12:26 Consult Date/Type/Reason Admit Date/Time Aug 14, 2017 at 22:53 Objective Vital Signs Date Time Temp Pulse Resp B/P Pulse Ox O2 Delivery O2 Flow Rate FiO2 08/21/17 07:00 99.3 95 18 148/72 90 08/21/17 05:05 2.0 08/20/17 20:00 Nasal Cannula 08/19/17 22:10 21 Intake and Output 08/20/17 08/20/17 08/21/17 14:59 22:59 06:59 Intake Total 1125 ml Output Total 500 ml Balance 625 ml Results/Medications Result Diagram: 08/20/17 1200 08/21/17 0625 Results 24 hrs Laboratory Tests Test 08/21/17 06:25 Sodium Level 143 Potassium Level 3.1 L Chloride Level 108 Carbon Dioxide Level 21 Anion Gap 17 H Blood Urea Nitrogen 31 H Creatinine 1.38 H Glucose Level 108 Calcium Level 9.1 Phosphorus Level 5.0 H Magnesium Level 1.8 Medications Current Medications Pantoprazole (Protonix Tab) 40 mg DAILY@06 PO Last administered on 08/20/17 06:21; Admin Dose 40 MG; Start 08/15/17 at 06:00 Simethicone (Mylicon) 80 mg TID PRN PO DISTENSION/GAS/BLOATING Last administered on 08/20/17 08:35; Admin Dose 80 MG; Start 08/15/17 at 00:30 Sodium Biphosphate/ Sodium Phosphate (Fleet Enema) 133 ml DAILY PRN [place] CONSTIPATION; Start 08/15/17 at 00:30 Zolpidem Tartrate (Ambien) 5 mg HS PRN PO INSOMNIA; Start 08/15/17 at 00:30 Oxycodone HCl (Oxycontin) 10 mg BID PO Last administered on 08/20/17 10:23; Admin Dose 10 MG; Start 08/15/17 at 09:00 Docusate Sodium/ Ferrous Fumarate (Harry-Sequels) 1 tab BID PO Last administered on 08/20/17 08:34; Admin Dose 1 TAB; Start 08/15/17 at 09:00 Aspirin (Halfprin) 81 mg BID PO Last administered on 08/20/17 08:34; Admin Dose 81 MG; Start 08/15/17 at 09:00 Atorvastatin Calcium (Lipitor) 10 mg DAILY@21 PO Last administered on 21:21; Admin Dose 10 MG; Start 08/15/17 at 21:00 Bisacodyl (Dulcolax Supp) 10 mg DAILY PRN [place] CONSTIPATION; Start 08/15/17 at 00:30 Celecoxib (Celebrex) 200 mg BID PO Last administered on 08/20/17 08:34; Admin Dose 200 MG; Start 08/15/17 at 09:00 Clopidogrel Bisulfate (plaVIX) 75 mg DAILY PO Last administered on 08/20/17 08:34; Admin Dose 75 MG; Start 08/15/17 at 09:00 Senna/Docusate Sodium (Senokot-S) 2 tab BID PRN PO CONSTIPATION; Start at 03:05 Acetaminophen (Tylenol Tab) 650 mg Q4H PRN PO PAIN; Start 08/15/17 at 04:30 Bisacodyl (Dulcolax) 5 mg DAILY PRN PO CONSTIPATION Last administered on 08:16; Admin Dose 5 MG; Start 08/15/17 at 15:00 Enoxaparin Sodium (Lovenox) 40 mg DAILY SC Last administered on 08/21/17 10: 02; Admin Dose 40 MG; Start 08/15/17 at 15:00 Acetaminophen/ Hydrocodone Bitart ([place] (7.5-325)) 1 tab Q6H PRN PO pain Last administered on 08/18/17 12:45; Admin Dose 1 TAB; Start 08/16/17 at 09:30 Hydromorphone HCl (Dilaudid) 0.5 mg Q6H PRN IV PAIN Last administered on 02:48; Admin Dose 0.5 MG; Start 08/16/17 at 09:30 Ondansetron HCl (Zofran Inj) 4 mg Q6H PRN IV NAUSEA AND/OR VOMITING Last administered on 08/20/17 08:30; Admin Dose 4 MG; Start 08/18/17 at 09:30 Ciprofloxacin (Cipro) 500 mg BID@06,18 PO Last administered on 08/20/17 17:13 ; Admin Dose 500 MG; Start 08/18/17 at 18:00; Stop 08/22/17 at 21:00 Clonazepam (Klonopin) 2 mg Q6 PRN PO ANXIETY Last administered on 08/19/17 17 :48; Admin Dose 2 MG; Start 08/19/17 at 12:00 Propranolol HCl 60 mg 60 mg BID PO Last administered on 08/21/17 10:01; Admin Dose 60 MG; Start 08/19/17 at 21:00 Sodium Chloride (NS) 1,000 ml @ 125 mls/hr Q8H IV Last administered on 10:42; Admin Dose 125 MLS/HR; Start 08/20/17 at 18:00 Metoclopramide HCl 10 mg 10 mg Q6 IV Last administered on 08/21/17 06:17; Admin Dose 10 MG; Start 08/21/17 at 00:00 Potassium Chloride (KCl 40 MEQ/250 ML NS) 250 ml @ 62.5 mls/hr ONCE ONCE IVPB ; Start 08/21/17 at 12:00; Stop 08/21/17 at 15:59 Docusate Sodium (Colace) 200 mg BID PO ; Start 08/21/17 at 21:00; Status ALEJANDRA VICENTE MD Aug 21, 2017 12:27
--- NOTE | 2017-08-21 13:33 | RADRPT ---
PROCEDURE: CT ABDOMEN AND PELVIS WITHOUT CONTRAST. CLINICAL INDICATION: Abdominal pain. Follow up ileus TECHNIQUE: CT scan of the abdomen and pelvis without contrast was performed on a multidetector hig h-resolution CT scanner. The patient was scanned without intravenous contrast. Coronal and sagittal reformatted images were obtained from the axial source images. Images were reviewed on a high-resol [employer] PACS workstation. The total exam CTDI equals 20 mGy and the total exam DLP equals 1522.7 mGy-c m. One or more of the following dose reduction techniques were used: Automated exposure control. Adjustment of the mA and/or kV according to patient size. Use of iterative reconstruction technique. DICOM images are available COMPARISON: None FINDINGS: CT abdomen: Bilateral lower lobe consolidation is noted. The heart size is enlarged. There is no significant per icardial effusion. There is bilateral bronchiectasis. Airways are patent. Hepatic morphology is within limits. Gallbladder is not visualized. There is mild intrahepatic dilat ation and dilatation of the common bile duct measuring up to 1.0 cm. There is mild perihepatic fluid . The spleen is unremarkable. There is fatty atrophy of the pancreas. Both adrenal glands are within normal limits. Both kidneys are and normal anatomic position. There is nonspecific bilateral perinephric fat strand ing. A left-sided mid pole renal cyst measuring 2.5 cm is noted. No evidence of obstruction or hydro nephrosis. The visualized GI tract demonstrates fluid-filled distended stomach. There are multiple loops of dil ated small bowel with air-fluid levels. No definitive transition point noted at this time. Air-fille d distension of the right colon is noted. There is diffuse colonic diverticulosis. Atherosclerotic calcification of the aorta is identified. There is no significant retroperitoneal ly mphadenopathy. CT pelvis: Fluid is noted within the rectosigmoid colon, which is tortuous. The prostate gland is calcified. Th ere is a fat-containing left inguinal hernia. No significant free fluid. No significant pelvic lymph adenopathy. The visualized osseous structures demonstrates multilevel degenerative disease of the spine. Posteri or spinal hardware is noted. Bilateral buttocks calcified granulation is identified. IMPRESSION: 1. Fluid-filled distended stomach and multiple loops of distended fluid-filled small bowel. There is also air-filled distension of the right colon. No definitive transition point identified. Findings are likely consistent with severe ileus and gastroparesis. Consider follow-up small bowel series. 2. Diffuse colonic diverticulosis. Fluid-filled mildly distended rectosigmoid colon suggestive of wa sisi diarrhea. 3. Diffuse atherosclerotic disease of the aorta. 4. Status post cholecystectomy. Intrahepatic dilatation and mild dilatation of the common bile duct, which can be within normal limits post cholecystectomy. Small amount nonspecific perihepatic fluid. 5. Left-sided renal cyst. No evidence of obstruction or hydronephrosis within both kidneys. 6. Atherosclerosis of the aorta. 7. Bilateral lower lobe consolidation; pneumonia versus atelectasis. Correlate with clinical finding s. 8. Other incidental findings as described above. RPTAT: AAPP Physician Britt Date Time Electronically viewed and signed by Physician Britt on 08/21/2017 13:33 MARLON/
[2017-08-21] MEDS ORDERED: NA PHOSPHATE/BIPHOS 133 ML ENEMA PR ONE (14:00)
[2017-08-21] MEDS ORDERED: DOCUSATE SODIUM 100 MG CAP PO SCH (21:00)
--- NOTE | 2017-08-26 09:35 | DS ---
Date/Time of Note Date/Time of Note DATE: 08/26/17 TIME: 09:29 Discharge Summary Admission/Discharge Info Admit Date/Time Aug 14, 2017 at 22:53 Discharge Date/Time Aug 21, 2017 at 15:00 Discharge Diagnosis 1. Ileus 2.Other orthopedic disorder with severe osteoarthritis status post right total knee replacement. 3. Acute pain syndrome. 4. History of chronic low back pain with history of back surgery. 5. Obesity. 6. Coronary artery disease with history of coronary artery bypass graft. 7. Chronic obstructive pulmonary disease. 8. Hyperlipidemia. 9. History of left total knee replacement. 10. Improvements in self-care and mobility. Patient Condition: Serious Hospital Course Patient was admitted for comprehensive interdisciplinary acute rehabilitation. Patient made steady functional gains and improved from a max level to a minimal level for self care and mobility, including ambulating 150 feet with the use of a front wheeled walker. Patient was noted to have increasing abdominal pain and nausea in addition to constipation. Patient noted to have BM on 08/20, but still with persistent abdominal discomfort. KUB was obtained and pateitn noted to have ileus. Patient refused NG suction, and wanted to return home. He was agreeable with obtaining abdominal CT, which was consistent with ileus and gastroparesis. Patient transferred to acute hospital for closer monitoring and care. Home Meds Reported Medications Clonazepam* (Clonazepam*) 2 Mg Tablet, 2 MG PO BID, TAB 08/11/17 Doxepin Hcl* (Doxepin Hcl*) 10 Mg Capsule, 10 MG PO HS, CAP 08/11/17 Atorvastatin Calcium (Atorvastatin Calcium) 10 Mg Tablet, 10 MG PO QHS, #30 TAB 08/11/17 Esomeprazole Mag Trihydrate (Nexium) 40 Mg Capsule.dr, 40 MG PO DAILY, #30 CAP 08/11/17 Propranolol Hcl (Inderal LA) 60 Mg Capsr, 60 MG PO, CAP 08/11/17 Clopidogrel Bisulfate (Clopidogrel) 75 Mg Tablet, 75 MG PO DAILY, #30 TAB 08/11/17 Primary Care Provider Not On Staff Doctor ALEJANDRA BATEMAN MD Aug 26, 2017 09:35
== END 2017-08-21 15:00 | disposition short-term general hospital (02) | DRG 560 ==
LOC: VRC 22:53
PROVIDERS: ADMIT Physical Medicine & Rehabilitation; ATTEND Internal Medicine Pulmonary Disease
PROC: F07Z5ZZ Bed Mobility Treatment (ICD-10-PCS; principal; 2017-08-15)
PROC: F08Z2ZZ Grooming/Personal Hygiene Treatment (ICD-10-PCS; 2017-08-15)
DX: Z47.1 Aftercare following joint replacement surgery (principal); N39.0 Urinary tract infection, site not specified; J44.9 Chronic obstructive pulmonary disease, unspecified; F06.8 Other specified mental disorders due to known physiological condition; D64.9 Anemia, unspecified; Z95.1 Presence of aortocoronary bypass graft; E66.9 Obesity, unspecified; G89.18 Other acute postprocedural pain; Z96.651 Presence of right artificial knee joint; Z68.36 Body mass index [BMI] 36.0-36.9, adult; I25.10 Atherosclerotic heart disease of native coronary artery without angina pectoris; E78.5 Hyperlipidemia, unspecified; Z79.82 Long term (current) use of aspirin; E87.6 Hypokalemia; F32.9 Major depressive disorder, single episode, unspecified; K59.00 Constipation, unspecified; B96.5 Pseudomonas (aeruginosa) (mallei) (pseudomallei) as the cause of diseases classified elsewhere; B95.2 Enterococcus as the cause of diseases classified elsewhere
CPT/HCPCS: 74000; 74176; 80048; 80053; 81001; 83036; 83735; 84100; 85025; 87081; 87086; 94640; 94664; 97110; 97112; 97116; 97150; 97163; 97167; 97530; 97535; 97542; J1170; J1650; J2405; J2765; J3475; J3480; J7030

== ENCOUNTER 2017-08-21 15:51 | Inpatient (IN) | END 2017-10-08 07:30 | disposition EXP | DRG 329 ==